=== PATIENT | female | born 1955 | race African-American/Black ===

== ENCOUNTER 2016-07-12 12:02 | Emergency (ER) | payer MEDICARE, MEDICAID ==
[~2016-07-12] VITALS: Ht 162.6 cm; Wt 95.0 kg
[~2016-07-12 12:02] MED LIST: ALBUTERO1 IN; ALBUTEROL90 MCG IN; ALLOPURINOL300 MG PO; ALPHAGAN P0.1 % OP; ALPHAGAN P0.15 % OP; ALPRAZOLAM0.25 MG OR; ALPRAZOLAM0.5 MG PO; AMANTADINE100 MG OR; AMLODIPINE10 MG PO; ANTACID PO; ASPIR-LOW81 MG OR; ASPIRIN325 MG OR; ASPIRIN325 MG PO; AUGMENTIN500TAB PO; AVANDIA4 MG OR; BACLOFEN10 MG PO; BACTRIM DS1 TAB PO; BAYER ASPIRIN E81 MG PO; BL ASPIRIN325 MG PO; CALCIUM + D600 MG PO; CALCIUM 600/VI600 MG PO; CAPOTEN12.5 MG OR; CAPTOPRIL12.5 MG OR; CAPTOPRIL25 MG OR; CAPZASIN TOP; CARISOPRODOL350 MG OR; CARISOPRODOL350 MG PO; CIPRO500 MG OR; CIPROFLOXACN500 MG PO; COLCHICINE0.6 M2 PO; COLPROBENEMID500 MG PO; COMBIVENT IN; CVS OMEPRAZOLE20 MG PO; DILANTIN100 MG PO; ELAVIL25 MG PO; ERYTHROMYCIN BAS1 GM OD; FLUARIX QUADRIV1 IN1 IM; FLUARIX QUADRIV1 IN2 IM; FLUARIX QUADRIV1 INJ IM; FLULAVAL IM; FUROSEMIDE40 MG OR; FUROSEMIDE40 MG PO; GABAPENTIN100 MG PO; GABAPENTIN300 M2 PO; GABAPENTIN300 MG PO; GLIPIZIDE10 M1 PO; GLUCOS1 PO; GLUCOTROL10 MG PO; GLYBURID MCR6 M1 PO; GLYNASE6 MG OR; GLYNASE6 MG PO; HUMULIN 70/30 SC; HYDROCO/AP10 MG/660 OR; HYDROCO/APAP; HYDROCO/APAP1 T10 OR; HYDROCO/APAP1 T10 PO; IBUPROFEN600 MG PO; IBUPROFEN800 MG PO; KEFLEX250 MG OR; KEFLEX500 MG OR; KLOR-CON M2020 MEQ OR; LASIX40 MG OR; LASIX40 MG PO; LEVAQUIN500 MG OR; LISINOPRIL20 MG OR; LORCET PLUS1 TAB OR; LORCET PO; LORTAB 10 OR; LORTAB 10-325 M1 TAB PO; LORTAB 5 OR; LORTAB 5/3255 MG PO; LORTAB 7.5 OR; LORTAB 7.57.5 MG PO; LORTAB 7.57.5 MG/TAB OR; LOTENSIN HCT1 TA2 PO; LOTENSIN HCT1 TA3 PO; LYRICA100 MG PO; LYRICA200 MG PO; LYRICA75 MG PO; MAGNESIUM296 ML/BTL PO; MEDDOSEPAK OR; MEDDOSEPAK PO; METFORMIN HCL1000 MG PO; METFORMIN1000 MG PO; METFORMIN500 M1 OR; METFORMIN500 MG PO; MIRAPEX0.5 MG OR; MIRAPEX0.5 MG PO; MIRAPEX0.75 MG PO; MIRAPEX1 MG PO; MITIGARE0.6 MG PO; NAPROSYN500 MG OR; NAPROSYN500 MG PO; NEURONTIN100 MG PO; NEURONTIN300 MG PO; NEURONTIN600 MG PO; NEXIUM40 M1 OR; NORCO1 TA1 PO; NORVASC PO; NORVASC10 M1 PO; NORVASC2.5 MG PO; NOVOLIN 70/30; NOVOLIN 70/30 SC; OMEPRAZOLE20 MG PO; ONGLYZA5 MG PO; PERCOCET 5/321 COMBO PO; PERCOCET 5/325M1 TAB PO; PLAVIX75 MG PO; POLYSPORIN3.5 GM OP; POT CHLORIDE20 ME3 PO; PRAVACHOL40 MG PO; PRAVACHOL80 MG PO; PRAVASTATIN40 MG OR; PRAVASTATIN40 MG PO; PRAVASTATIN80 MG PO; PREVNAR 13 IM; PREVPAC OR; PROAIR HFA IN; PROVENTIL IN; PROVENTIL INH17 GM IN; PROVENTIL0.083 % IN; RESTORIL30 MG OR; RESTORIL30 MG PO; SOMA350 MG OR; SOMA350 MG PO; TAM75CAP PO; TEMAZEPAM30 MG OR; TEMAZEPAM30 MG PO; TERBINAFINE250 M1 PO; TESSALON PERLE100 MG PO; TIZANIDINE4 MG PO; TRAMADOL HCL50 MG PO; TRAVATAN0.004 % OP; TUSSIONEX1 ML OR; TYLENOL # 31 TA1 PO; VENTOLIN HF1 IN; VENTOLIN HFA IN; XANAX0.25 MG OR; XANAX0.5 MG PO; ZANAFLEX4 M2 PO; ZESTRIL10 M1 PO; ZITHROMAX250 MG OR; ZPAK PO; ZYRTEC5 MG OR; [UNRECOGNIZED DRUG - OTHER] OR
[2016-07-12 13:02] LABS: HEMATOCRIT 28.1 % (37.0-47.0); HEMOGLOBIN 9.1 g/dl (12.0-16.0); IMMATURE GRANULOCYTES 0.3 % (0.0-1.0); MEAN CELL VOLUME 82.2 fL CALC (80.0-100.0); MEAN CORPUSCULAR HGB 26.6 pG CALC (26.0-32.0); MEAN CORPUSCULAR HGB CONC 32.4 g/L CALC (32.0-36.0); NEUT# 2.52 thou/uL (2.00-7.15); RED BLOOD COUNT 3.42 mill/uL (4.20-5.60); RED CELL DISTRI WIDTH 15.2 % (11.5-15.5); URINE BILIRUBIN - DIPSTICK NEGATIVE (NEGATIVE); URINE BLOOD DIPSTICK NEGATIVE (NEGATIVE); URINE CLARITY CLEAR; URINE COLOR YELLOW; URINE GLUCOSE - DIPSTICK NEGATIVE (NEGATIVE); URINE KETONE NEGATIVE (NEGATIVE); URINE LEUK ESTERASE NEGATIVE (NEGATIVE); URINE NITRITE - DIPSTICK NEGATIVE (Negative); URINE PH 5.5 (4.5-8.0); URINE PROTEIN - DIPSTICK 30 mg/dL (NEG-TRACE); URINE UROBILINOGEN - DIPSTICK 0.2 E.U./dL (0.2)
[2016-07-12 13:03] LABS: URINE EPITHELIAL CELLS FEW EPI/hpf (0-FEW); URINE MUCUS MODERATE hpf (NONE-FEW)
[2016-07-12] MEDS ORDERED: NOVOLIN 70/30 SC ×2 (13:12)
[2016-07-12 13:15] LABS: ALBUMIN 3.9 g/dL (3.2-5.0); ALKALINE PHOSPHATASE 133 u/l (38-126); AMYLASE 153 u/l (30-110); ANION GAP 14 (6-22 (CALC)); BILIRUBIN, TOTAL 0.3 mg/dL (0.0-1.4); BUN 28 mg/dL (8-23); BUN/CREATININE RATIO 11 (12-20 (CALC)); CALCIUM 10.5 mg/dL (8.4-10.2); CARBON DIOXIDE 26 mmol/l (22-30); CHLORIDE 104 mmol/l (95-108); CREATININE 2.6 mg/dL (0.5-1.0); GFR 19 ML/MIN (>=60 (CALC)); GFR FOR AFR.AMER. 23 ML/MIN (>=60 (CALC)); GLUCOSE 90 mg/dL (82-115); LIPASE 208 u/l (23-300); POTASSIUM 4.9 mmol/l (3.5-5.1); SGOT/AST 18 u/l (9-36); SGPT/ALT 24 u/l (11-66); SODIUM 139 mmol/l (137-146); TOTAL PROTEIN 7.7 g/dL (6.3-8.2)
[2016-07-12 13:26] LABS: MYOGLOBIN 104 ng/mL (0 - 62)
[2016-07-12 16:41] VITALS: BP 189/77
== END 2016-07-12 16:48 | disposition home or self-care (01) ==
LOC: ED 12:02
PROVIDERS: Emergency Medicine
DX: R10.33 Periumbilical pain (principal); E11.22 Type 2 diabetes mellitus with diabetic chronic kidney disease; I12.9 Hypertensive chronic kidney disease with stage 1 through stage 4 chronic kidney disease, or unspecified chronic kidney disease; N18.9 Chronic kidney disease, unspecified; G47.30 Sleep apnea, unspecified; J45.909 Unspecified asthma, uncomplicated; R94.31 Abnormal electrocardiogram [ECG] [EKG]

== ENCOUNTER 2016-12-19 11:58 | Emergency (ER) | payer MEDICARE, MEDICAID ==
[~2016-12-19] VITALS: Ht 162.6 cm; Wt 100.0 kg
[2016-12-19 12:28] LABS: URINE BILIRUBIN - DIPSTICK NEGATIVE (NEGATIVE); URINE BLOOD DIPSTICK MODERATE (NEGATIVE); URINE CLARITY CLEAR; URINE COLOR YELLOW; URINE GLUCOSE - DIPSTICK 500 mg/dL (NEGATIVE); URINE KETONE TRACE mg/dL (NEGATIVE); URINE LEUK ESTERASE NEGATIVE (NEGATIVE); URINE PROTEIN - DIPSTICK >=300 mg/dL (NEG-TRACE); URINE SPECIFIC GRAVITY 1.025; URINE UROBILINOGEN - DIPSTICK 0.2 E.U./dL (0.2)
[2016-12-19 12:37] LABS: URINE BACTERIA RARE hpf; URINE EPITHELIAL CELLS FEW EPI/hpf (0-FEW); URINE NITRITE - DIPSTICK NEGATIVE (Negative); URINE WBC 0-2 WBC/hpf (0-5)
[2016-12-19 12:48] LABS: HEMATOCRIT 29.8 % (37.0-47.0); HEMOGLOBIN 9.9 g/dl (12.0-16.0); IMMATURE GRANULOCYTES 0.3 % (0.0-1.0); MEAN CELL VOLUME 80.1 fL CALC (80.0-100.0); MEAN CORPUSCULAR HGB 26.6 pG CALC (26.0-32.0); MEAN CORPUSCULAR HGB CONC 33.2 g/L CALC (32.0-36.0); NEUT# 4.02 thou/uL (2.00-7.15); RED BLOOD COUNT 3.72 mill/uL (4.20-5.60); RED CELL DISTRI WIDTH 13.2 % (11.5-15.5)
[2016-12-19 13:14] LABS: ALBUMIN 3.2 g/dL (3.2-5.0); BILIRUBIN, TOTAL 0.7 mg/dL (0.0-1.4); CALCIUM 9.1 mg/dL (8.4-10.2); CREATININE 2.3 mg/dL (0.5-1.0); POTASSIUM 3.2 mmol/l (3.5-5.1)
[2016-12-19] MEDS ORDERED: LORTAB 5-325 MG1 TAB PO (13:48)
[2016-12-19 14:26] VITALS: BP 221/95
== END 2016-12-19 14:26 | disposition home or self-care (01) ==
LOC: ED 11:58
PROVIDERS: Emergency Medicine
DX: R07.89 Other chest pain (principal); J45.909 Unspecified asthma, uncomplicated; G47.30 Sleep apnea, unspecified; E11.22 Type 2 diabetes mellitus with diabetic chronic kidney disease; I12.9 Hypertensive chronic kidney disease with stage 1 through stage 4 chronic kidney disease, or unspecified chronic kidney disease; N18.9 Chronic kidney disease, unspecified

== ENCOUNTER 2017-01-23 10:30 | Emergency (ER) | payer MEDICARE, MEDICAID ==
[~2017-01-23] VITALS: Ht 162.6 cm; Wt 90.0 kg
[~2017-01-23 10:30] MED LIST changes: +GLIPIZIDE ER5 MG PO; +LASIX 40 MG40 MG/TAB PO; +LISINOPRIL10 MG PO; +LORTAB 5-325 MG1 TAB PO; +LYRICA50 MG PO; +PRAMIPEXOLE1 MG PO; +PRAVASTATIN20 MG PO; +VALPROIC ACD250 M1 PO; +VITAMIN D50000 UNIT PO
[2017-01-23 11:07] LABS: HEMATOCRIT 32.5 % (37.0-47.0); HEMOGLOBIN 10.9 g/dl (12.0-16.0); IMMATURE GRANULOCYTES 0.4 % (0.0-1.0); MEAN CELL VOLUME 79.5 fL CALC (80.0-100.0); MEAN CORPUSCULAR HGB 26.7 pG CALC (26.0-32.0); MEAN CORPUSCULAR HGB CONC 33.5 g/L CALC (32.0-36.0); NEUT# 6.96 thou/uL (2.00-7.15); RED BLOOD COUNT 4.09 mill/uL (4.20-5.60); RED CELL DISTRI WIDTH 13.2 % (11.5-15.5)
[2017-01-23 11:25] LABS: ALBUMIN 3.5 g/dL (3.2-5.0); BILIRUBIN, TOTAL 0.5 mg/dL (0.0-1.4); CALCIUM 10.4 mg/dL (8.4-10.2); CREATININE 2.2 mg/dL (0.5-1.0); POTASSIUM 4.2 mmol/l (3.5-5.1); TOTAL PROTEIN 7.3 g/dL (6.3-8.2)
[2017-01-23 14:03] LABS: URINE BILIRUBIN - DIPSTICK NEGATIVE (NEGATIVE); URINE BLOOD DIPSTICK TRACE-INTACT (NEGATIVE); URINE CLARITY CLEAR; URINE COLOR YELLOW; URINE GLUCOSE - DIPSTICK 250 mg/dL (NEGATIVE); URINE KETONE TRACE mg/dL (NEGATIVE); URINE LEUK ESTERASE NEGATIVE (NEGATIVE); URINE NITRITE - DIPSTICK NEGATIVE (Negative); URINE PH 6.5 (4.5-8.0); URINE PROTEIN - DIPSTICK 100 mg/dL (NEG-TRACE); URINE UROBILINOGEN - DIPSTICK 0.2 E.U./dL (0.2)
[2017-01-23 14:17] LABS: URINE SQUAMOUS EPITHELIAL CELL FEW EPI/hpf (0-FEW)
[2017-01-23 19:54] VITALS: BP 133/72
== END 2017-01-23 19:56 | disposition home or self-care (01) ==
LOC: ED 10:30
PROVIDERS: Emergency Medicine
DX: R10.13 Epigastric pain (principal); E11.22 Type 2 diabetes mellitus with diabetic chronic kidney disease; I12.9 Hypertensive chronic kidney disease with stage 1 through stage 4 chronic kidney disease, or unspecified chronic kidney disease; N18.9 Chronic kidney disease, unspecified; J45.909 Unspecified asthma, uncomplicated; G47.30 Sleep apnea, unspecified; I25.10 Atherosclerotic heart disease of native coronary artery without angina pectoris; I25.2 Old myocardial infarction
CPT/HCPCS: S0164

== ENCOUNTER 2017-02-14 08:54 | Emergency (ER) | payer MEDICARE, MEDICAID ==
[~2017-02-14] VITALS: Ht 162.6 cm; Wt 90.0 kg
[2017-02-14] MEDS ORDERED: ULTRAM50 M1 PO (09:31)
[2017-02-14 09:47] VITALS: BP 185/65
== END 2017-02-14 09:55 | disposition home or self-care (01) ==
LOC: ED 08:54
DX: S80.01XA Contusion of right knee, initial encounter (principal); W18.39XA Other fall on same level, initial encounter; Y92.232 Corridor of hospital as the place of occurrence of the external cause

== ENCOUNTER 2017-05-08 09:50 | Inpatient (IN) | payer MEDICARE, MEDICAID ==
[~2017-05-08] VITALS: Ht 162.6 cm; Wt 89.5 kg
[2017-05-08] VITALS (20 sets, daily range): BP systolic 128–208; BP diastolic 81–110
[~2017-05-08 09:50] MED LIST changes: +ULTRAM50 M1 PO
--- NOTE | 2017-05-08 09:50 | NUR ---
TO ROOM 12 VIA EMS. ALERT. COOPERATIVE. ACCUCHECK 38 AT HOME. EMS GAVE D50 PRIOR TO ARRIVA. S/S HAVE GONE
[2017-05-08] MEDS ORDERED: HYDROCO/APAP1 T10 PO (10:26)
[2017-05-08] MEDS ORDERED: AMLODIPINE5 MG PO (10:28)
[2017-05-08] MEDS ORDERED: AURYXIA210 MG PO (10:30)
[2017-05-08] MEDS ORDERED: ONGLYZA5 MG PO (10:31)
[2017-05-08] MEDS ORDERED: ASPIRIN325 MG PO (10:32)
[2017-05-08] MEDS ORDERED: FOLIC ACID1 MG PO (10:33)
[2017-05-08 10:47] LABS: HEMATOCRIT 31.4 % (37.0-47.0); HEMOGLOBIN 10.2 g/dl (12.0-16.0); IMMATURE GRANULOCYTES 0.5 % (0.0-1.0); MEAN CELL VOLUME 80.5 fL CALC (80.0-100.0); MEAN CORPUSCULAR HGB 26.2 pG CALC (26.0-32.0); MEAN CORPUSCULAR HGB CONC 32.5 g/L CALC (32.0-36.0); NEUT# 5.29 thou/uL (2.00-7.15); RED BLOOD COUNT 3.9 mill/uL (4.20-5.60)
[2017-05-08 10:59] LABS: ANION GAP 16 (6-22 (CALC)); BUN 38 mg/dL (8-23); BUN/CREATININE RATIO 13 (12-20 (CALC)); CARBON DIOXIDE 21 mmol/l (22-30); CHLORIDE 108 mmol/l (95-108); CREATININE 2.9 mg/dL (0.5-1.0); GFR 16 ML/MIN (>=60 (CALC)); GFR FOR AFR.AMER. 20 ML/MIN (>=60 (CALC)); POTASSIUM 4.6 mmol/l (3.5-5.1); SODIUM 141 mmol/l (137-146)
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
--- NOTE | 2017-05-08 12:45 | NUR ---
LABETOLOL HELD BP 154/74, HR 75. AWARE
--- NOTE | 2017-05-08 13:10 | NUR ---
PT ACCUCHECK WAS 53. GIVEN A LUNCH TRAY FROM CAFETERIA. ACCU RECHECK 51. MD NOTIFIED. D50 OVERRODE FROM [facility] BC MD STATED PHARM WAS ALREADY IN HER CHART. BP UP TO 235/102. PT A&Ox4, TALKING WITH STAFF. DENIES BEING DIZZY OR LIGHTHEADED. MD AWARE OF BP & BLOOD SUGAR BOUNCING UP & DOWN. CALLING ADMITTING MD FOR CHANGE IN UNIT.
--- NOTE | 2017-05-08 13:22 | NUR ---
Admission Note Report Given to: DAVION Transported by: Wheelchair X Stretcher Transported with: X Nurse Transporter X Patent IV O2 X Client Server Programmer
--- NOTE | 2017-05-08 13:48 | NUR ---
D5 DISCONTINUED- 105ML GIVEN. VERBAL ORDER FOR D10 STARTED AT 1344 @ 100ML/HR. PER MD JOY.
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
--- NOTE | 2017-05-08 14:25 | NUR ---
accucheck of 127; will continue to monitor
--- NOTE | 2017-05-08 14:25 | NUR ---
PT TAKEN TO ICU ROOM 5 IN STABLE CONDITION WITH MONITOR ON STRETCHER. RN @ BEDSIDE.
--- NOTE | 2017-05-08 14:33 | NUR ---
pt noted calling for nurse approx 2-3 min after medications given; in to assess pt; pt noted with projectile vomiting; medications visually observed in emesis; pt vomited approx 1-1.5 liters; unprocessed food noted; pt admits to eating 2 lunch trays wheile in ER; pt denies nausea; will continue to monitor
--- NOTE | 2017-05-08 15:00 | NUR ---
Cielo AMOR on unit; APPEALS REVIEWER VETERAN informed of vomiting; APPEALS REVIEWER VETERAN informed medications administered at 1430 were noted in emesis; will continue to mointor
--- NOTE | 2017-05-08 15:45 | NUR ---
manual bp 198/98;
--- NOTE | 2017-05-08 15:59 | NUR ---
awake; offers no complaints; denies pain; no nausea noted; iv patent; no redness or edema noted at site; sr on monitor; po fluids provided; call light within reach; will continue to monitor
--- NOTE | 2017-05-08 16:25 | NUR ---
Cielo Valles NP notified of sustained hypertension; orders to be placed
--- NOTE | 2017-05-08 17:27 | NUR ---
Dr Mckeon at bedside
--- NOTE | 2017-05-08 18:03 | NUR ---
awake in bed eating dinner; no distress noted; pt offers no complaints; iv patent; no redness or edema noted at site; st on monitor; deny needs; bed in lowest position; call light within reach
--- NOTE | 2017-05-08 18:32 | NUR ---
side rails padded for seizure precautions; bilat knee high leidy hose placed
--- NOTE | 2017-05-08 19:34 | NUR ---
PT IN SEMIFOWLERS A/O X3, RESPIRATIONS EVEN AND UNLABORED ON RA, O2 SAT 100%. ACCUCHECK 142 AT THIS TIME. DENIES PAIN OR DISCOMFORT. D10 INFUSING TO LAC AT 50CC/HR REDUCED DOWN TO 20ML/HR, WILL DO ACCUCHECK AT 2100. B/P 175/83, HR 108, WILL ADMINISTER HYDRALAZINE PER MAR ORDERED. ORIENTED TO USE CALL LIGHT FOR ASSISTANCE, WILL CONTINUE TO MONITOR.
--- NOTE | 2017-05-08 20:50 | NUR ---
TAKING PO PM MEDS WITH SIP OF WATER, VOICES NO CONCERNS.
--- NOTE | 2017-05-08 21:37 | NUR ---
C/O ABDOMINAL PAIN 10/14, MEDICATED WTIH LORTAB. ACCUCHECK 156. CALL LIGHT IN REACH.
[2017-05-08 22:05] LABS: CALCULATED LDLCHOLESTEROL 133 mg/dL (62-129 (CALC)); CHOLESTEROL HDL RATIO 4.5 (<4.4 (CALC)); HDL CHOLESTEROL 41 mg/dL (>=40); TOTAL CHOLESTEROL 184 mg/dl (0-199); TOTAL TRIGLYCERIDES 51 mg/dl (30-149); VLDL CHOLESTROL 10 mg/dl (1-41 (CALC))
--- NOTE | 2017-05-08 23:25 | NUR ---
PT CALLING OUT FOR NURSE, IN TO ROOM TO ASSIST, PT ASKING FOR EMESIS BASIN, PROJECTILE VOMITING ON TO BED AND SHEETS, PRIOR TO RECEIVING BASIN. TUCKER RN MEDICATING PT WITH PHENERGAN PER MAR AT THIS TIME. PARTIAL BATH AND CLEAN LINENS APPLIED, USING BSC PRIOR TO GOING BACK TO BED, VOIDING 25ML CLEAR YELLOW URINE, BACK TO BED CALL LIGHT IN REACH. PT ADMITS TO VOMITING AT HOME ALMOST TWICE PER NIGHT. BS HYPOACTIVE.
[2017-05-09] VITALS (13 sets, daily range): BP systolic 107–167; BP diastolic 69–86
[2017-05-09 00:51] LABS: URINE BILIRUBIN - DIPSTICK NEGATIVE (NEGATIVE); URINE BLOOD DIPSTICK NEGATIVE (NEGATIVE); URINE COLOR YELLOW; URINE GLUCOSE - DIPSTICK NEGATIVE (NEGATIVE); URINE KETONE NEGATIVE (NEGATIVE); URINE NITRITE - DIPSTICK NEGATIVE (Negative); URINE PH 5.5 (4.5-8.0); URINE PROTEIN - DIPSTICK 100 mg/dL (NEG-TRACE); URINE SPECIFIC GRAVITY 1.015; URINE UROBILINOGEN - DIPSTICK 0.2 E.U./dL (0.2)
[2017-05-09 00:52] LABS: URINE BACTERIA MODERATE hpf; URINE CLARITY TURBID; URINE LEUK ESTERASE SMALL (NEGATIVE); URINE RBC 0-2 RBC/hpf (0-5); URINE SQUAMOUS EPITHELIAL CELL MODERATE EPI/hpf (0-FEW)
[2017-05-09 00:53] LABS: URINE YEAST MODERATE hpf
--- NOTE | 2017-05-09 01:00 | NUR ---
PT IN SEMIFOWLERS WATCHING TV, RESPIRATIONS EVEN AND UNLABORED, B/P 165/77, HR 110. DENIES NAUSEA AT THIS TIME. CALL LIGHT IN REACH.
--- NOTE | 2017-05-09 03:58 | NUR ---
PT VOMITING 900ML EMESIS INTO BASIN, CLEAR WITH PINK TINGE AND SCANT AMOUNT FOOD PARTICLES. ZOFRAN 4MG IV GIVEN AT THIS TIME, DENIES ABDOMINAL PAIN, BS HYPOACTIVE.
--- NOTE | 2017-05-09 04:40 | NUR ---
EMS SITE DC'D FROM LAC WITH CATH TIP INTACT, NEW IV STARTED TO LAC #22 ON 3RD ATTEMPT, TOLERATED WELL, MORNING BLOOD WORK ALSO DRAWN AT THIS TIME. ENCOURAGED PT TO KEEP NPO DUE TO THE VOMITING DURING THE NIGHT. CALL LIGHT IN REACH, BASIN AT BED SIDE.
[2017-05-09 04:55] LABS: IMMATURE GRANULOCYTES 0.3 % (0.0-1.0); MEAN CELL VOLUME 78.3 fL CALC (80.0-100.0); MEAN CORPUSCULAR HGB 26.1 pG CALC (26.0-32.0); MEAN CORPUSCULAR HGB CONC 33.3 g/L CALC (32.0-36.0); NEUT# 3.95 thou/uL (2.00-7.15); RED BLOOD COUNT 3.83 mill/uL (4.20-5.60)
[2017-05-09 05:07] LABS: CREATININE 2.6 mg/dL (0.5-1.0); POTASSIUM 4.2 mmol/l (3.5-5.1)
--- NOTE | 2017-05-09 07:10 | NUR ---
pt awake in bed; no distress noted; offers no complaints; assessment completed at this time; pt alert and oriented; denies pain; denies nausea; vomiting reported during the night; pt made npo until assess by MD; resp even and unlabored; lungs clear; skin color wnl; ra; hr reg; strong pulses; no edema noted; sr 90s on monitor; bilat knee high leidy hose intact; abd soft with bs present/hypoactive; no bm noted per copy writer; pt admits to voiding without pain or burning; no urine to inspect at this time; bsc; #22 in lac saline locked; no redness or edema noted at site; plan of care/ am meds explained; side rails padded for seizure precautions; call light within reach; will continue to monitor
--- NOTE | 2017-05-09 08:06 | NUR ---
awake; conversing on portable phone with daughter; no distress noted; pt offers no complaints; iv intact; sr on monitor; call light within reach; will continue to monitor
--- NOTE | 2017-05-09 08:12 | NUR ---
Cielo Valles NP notified of projectile vomiting during the night; AERIAL ADVERTISER informed of hypoactive bs; orders to be placed
--- NOTE | 2017-05-09 08:24 | NUR ---
ZULEYMA Esteban at bedside
--- NOTE | 2017-05-09 08:25 | NUR ---
0825- pt transferred to CT via wc with nursing staff in stable condition 0845- pt returned to unit via wc in stable condition; monitoring attachments explained and connected; daughter at bedside; home meds to be sent home with daughter
--- NOTE | 2017-05-09 10:08 | NUR ---
awake in bed; no distress noted; pt offers no complaints; iv intact; daughter at bedside; sr on monitor; call light within reach; will continue to monitor
--- NOTE | 2017-05-09 11:00 | NUR ---
assist to bsc; large hard/formed brown bm noted; will continue to monitor
--- NOTE | 2017-05-09 11:35 | NUR ---
assist to chair; complete bath per self; oral care per self; complete linen change; pt remains in recliner for lunch; will continue to monitor
--- NOTE | 2017-05-09 12:12 | NUR ---
awake in recliner; no distress noted; resp even and unlabored; iv intact; vss; st on monitor; pt offers no complaints; call light within reach; will continue to monitor
[2017-05-09 13:04] LABS: ALBUMIN 3.5 g/dL (3.2-5.0); BILIRUBIN, TOTAL 0.4 mg/dL (0.0-1.4); TOTAL PROTEIN 6.6 g/dL (6.3-8.2)
--- NOTE | 2017-05-09 13:05 | NUR ---
transported to [place] via accompanied by this journalists and other writers; 1320- returned to unit in stable condition accompanied by this time; will continue to monitor
--- NOTE | 2017-05-09 14:08 | NUR ---
resting in bed with eyes closed; no distress noted; resp even and unlabored; sr on monitor; iv intact; call light within reach; will continue to monitor
--- NOTE | 2017-05-09 16:07 | NUR ---
pt resting in bed with eyes closed; no distress noted; resp even and unlabored; sr on monitor; iv intact; call light within reach; will continue to monitor
--- NOTE | 2017-05-09 16:40 | NUR ---
Dr Mckeon at bedside
--- NOTE | 2017-05-09 18:23 | NUR ---
awake watching tv; no distress noted; resp even and unlabored; iv intact; sr on monitor; pt offers no complaints/needs; bed in lowest position; call light within reach
--- NOTE | 2017-05-09 19:40 | NUR ---
PT IN BED A/O X3, RESPIRATIONS EVEN AND UNLABORED ON RA. DENIES ABDOMINAL PAIN OR NAUSEA. HR 96, B/P 141/72, 02 SAT 100%. PO FLUIDS IN REACH, ENCOURAGED TO USE CALL LIGHT FOR ASSISTANCE, WILL CONTINUE TO MONITOR.
--- NOTE | 2017-05-09 21:37 | NUR ---
C/O ABDOMINAL PAIN 10/14, MEDICATED WTIH LORTAB. ACCUCHECK 156. CALL LIGHT IN REACH.
[2017-05-10 00:42] VITALS: BP 117/76
--- NOTE | 2017-05-10 00:46 | NUR ---
RESTING ON RIGHT SIDE WITH EYES CLOSED, RESPIRATIONS EVEN AND UNLABORED. CALL LIGHT IN REACH.
[2017-05-10 02:47] VITALS: BP 102/75
--- NOTE | 2017-05-10 02:50 | NUR ---
RESTING WITH EYES CLOSED, REPSIRATINS EVEN AND UNALBORED. B/P 102/75, HR 81. CALL LIGHT IN REACH.
[2017-05-10 04:12] VITALS: BP 145/86
--- NOTE | 2017-05-10 04:30 | NUR ---
OOB TO BSC WITH STANDBY ASSISTANCE, UNSTEADY GAIT, VOIDING CLEAR YELLOW URINE, ASSISTED WITH GUSTAVO CARE AND PARTIAL BATH AT THIS TIME. BACK TO BED, VOICES NO CONCERNS. A/O X3. CALL LIGHT IN REACH.
[2017-05-10 06:08] VITALS: BP 165/90
--- NOTE | 2017-05-10 06:31 | NUR ---
RESTING ON RIGHT SIDE WITH EYES CLOSED, RESPIRATIONS EVEN AND UNLABORED. CALL LIGHT IN REACH.
--- NOTE | 2017-05-10 07:15 | NUR ---
PT DOZING BUT AROUSES TO VERBAL STIMULI, ALERT AND ORIENTED BUT DROWSY, AM ASSESSMENT COMPLETED SEE INTERVENTIONS FOR DETAIL, AM ACCU CHECK 138 NO COVERAGE REQUIRED, LUNGS CLEAR, NO SHORTNESS OF BREATH OR DISTRESS NOTED, ABD SOFT AND BS ACTIVE, PT ADMITS TO BM'S YESTERDAY, DENIES N/V, SKIN INTACT, TRACE EDEMA NOTED TO BILATERAL LE, CALL QUINTERO WITHIN REACH, SAFETY MEASURES REINFORCED, ENCOURAGED TO CALL FOR ANY NEEDED ASSISTANCE.
--- NOTE | 2017-05-10 08:15 | NUR ---
AM MEAL AT BEDSIDE, PT VERBALIZES DESIRE TO SLEEP, ENCOURAGED TO CALL FOR ANY NEEDED ASSISTANCE WITH SET UP WHEN READY.
--- NOTE | 2017-05-10 08:53 | NUR ---
PT DOZING, VS STABLE NO S/S OF DISTRESS, CALL QUINTERO WITHIN REACH.
[2017-05-10 09:00] VITALS: BP 137/79
[2017-05-10 09:13] VITALS: BP 165/90
--- NOTE | 2017-05-10 10:15 | NUR ---
PT ATE MOST OF AM MEAL, INTO SEE PATIENT AND PLAN OF CARE DISCUSSED, SPOKE WITH DAUGHTER VIA TELEPHONE REGARDING, PLANNED D/C TODAY, ALL QUESTIONS ANSWERED.
[2017-05-10 10:47] LABS: CREATININE 3.2 mg/dL (0.5-1.0); POTASSIUM 4.4 mmol/l (3.5-5.1)
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
--- NOTE | 2017-05-10 11:57 | NUR ---
SET UP ASSIST PROVIDED FOR AFTERNOON MEAL, CALL QUINTERO WITHIN REACH AND COVERAGE PROVIDED FOR ACCU CHECK ORDERED
--- NOTE | 2017-05-10 13:15 | NUR ---
CALL INTO PATIENTS BROTHER INSTRUCTED, NO ANSWER LEFT MESSAGE, WILL AWAIT RETURN CALL
--- NOTE | 2017-05-10 14:30 | NUR ---
PT OOB GETTING DRESSED WIOTH MIN ASSIST, TOLERATES ACTIVITY WELL, BROTHER AT BEDSIDE, D/C INSTRUCTIONS DISCUSSED WITH PATIENT AND BROTHER, BOTH VERBALIZE UNDERSTANDING, MEDICATION CHANGES DISCUSSED IN DETAIL, ALL HOME MEDICATIONS RETURNED TO PATIENT
--- NOTE | 2017-05-10 14:35 | NUR ---
Discharge instructions given. Patient verbalizes understanding of same. Discharged in stable condition via Wheelchair to Home with family. All belongings sent with pt.
== END 2017-05-10 14:35 | DRG 638 ==
LOC: ED 09:50 → ED-I 12:29 → ED 12:40 → ICU 12:41 → MS2 12:41 → ICU 12:41 → MS2 12:41 → ICU 13:24
PROVIDERS: Family Medicine; Nurse Practitioner Family; ADMIT Internal Medicine; ATTEND Internal Medicine
DX: E11.649 Type 2 diabetes mellitus with hypoglycemia without coma (principal); I12.0 Hypertensive chronic kidney disease with stage 5 chronic kidney disease or end stage renal disease; N17.9 Acute kidney failure, unspecified; E11.22 Type 2 diabetes mellitus with diabetic chronic kidney disease; I16.0 Hypertensive urgency; E11.42 Type 2 diabetes mellitus with diabetic polyneuropathy; N18.5 Chronic kidney disease, stage 5; D63.1 Anemia in chronic kidney disease; F99 Mental disorder, not otherwise specified; G25.81 Restless legs syndrome; E86.0 Dehydration; G40.909 Epilepsy, unspecified, not intractable, without status epilepticus; Z79.4 Long term (current) use of insulin; Z86.73 Personal history of transient ischemic attack (TIA), and cerebral infarction without residual deficits; Z91.14 Patient's other noncompliance with medication regimen

== ENCOUNTER 2017-12-29 16:29 | Inpatient (IN) | payer MEDICARE, MEDICAID ==
[~2017-12-29] VITALS: Ht 162.6 cm; Wt 62.3 kg
[~2017-12-29 16:29] MED LIST changes: +AMLODIPINE5 MG PO; +AURYXIA210 MG PO; +FOLIC ACID1 MG PO
--- NOTE | 2017-12-29 16:37 | NUR ---
PT TO ROOM VIA WHEELCHAIR.
[2017-12-29 17:19] LABS: HEMOGLOBIN 9.5 g/dl (12.0-16.0); IMMATURE GRANULOCYTES 0.2 % (0.0-5.0); MEAN CELL VOLUME 83.6 fL CALC (80.0-100.0); MEAN CORPUSCULAR HGB 27.4 pG CALC (26.0-32.0); MEAN CORPUSCULAR HGB CONC 32.8 g/L CALC (32.0-36.0); NEUT# 2.62 thou/uL (2.00-7.15); RED BLOOD COUNT 3.47 mill/uL (4.20-5.60); RED CELL DISTRI WIDTH 13.3 % (11.5-15.5)
[2017-12-29 17:26] LABS: ALBUMIN 3.7 g/dL (3.2-5.0); BILIRUBIN, TOTAL 0.4 mg/dL (0.0-1.4); CREATININE 2.6 mg/dL (0.5-1.0); TOTAL PROTEIN 7.1 g/dL (6.3-8.2)
--- NOTE | 2017-12-29 17:38 | NUR ---
PT MEDICATED FOR ELEVATED BP UPON ARRIVAL TO ER. BP TRENDING DOWN CURRENTLY 189/96. BLE ELEVATED EDEMA BILAT +3 PITTING.
[2017-12-29] MEDS ORDERED: NOVOLOG MIX SC (18:15)
--- NOTE | 2017-12-29 18:42 | NUR ---
IV LASIX GIVEN ORDERED. BSC PROVIDED CALL LIGHT WITHIN REACH. FAMILY AT BEDSIDE.
--- NOTE | 2017-12-29 18:58 | NUR ---
PT VOIDED APPROX 600ML CLEAR YELLOW URINE IN BSC. TRANSFERS SELF.
--- NOTE | 2017-12-29 18:59 | NUR ---
REPORT PROVIDED TO DESIRAE ESQUIVEL.
--- NOTE | 2017-12-29 19:00 | NUR ---
REPORT RECEIVED FROM LAURIE. PATIENT IS ADMITTED WITH ROOM ASSIGNMENT. AWAITING BP TO IMPROVE MORE AFTER CLONIDINE. PATIENT REQUESTING FOOD.
[2017-12-29 19:14] LABS: URINE BILIRUBIN - DIPSTICK NEGATIVE (NEGATIVE); URINE BLOOD DIPSTICK SMALL (NEGATIVE); URINE COLOR YELLOW; URINE GLUCOSE - DIPSTICK NEGATIVE (NEGATIVE); URINE KETONE NEGATIVE (NEGATIVE); URINE LEUK ESTERASE NEGATIVE (NEGATIVE); URINE NITRITE - DIPSTICK NEGATIVE (Negative); URINE PH 6.5 (4.5-8.0); URINE PROTEIN - DIPSTICK 100 mg/dL (NEG-TRACE); URINE UROBILINOGEN - DIPSTICK 0.2 E.U./dL (0.2)
--- NOTE | 2017-12-29 19:20 | NUR ---
PATIENT GIVEN SUGAR FREE PUDDING AND A DIET SODA
[2017-12-29 19:24] LABS: URINE CLARITY CLEAR
[2017-12-29 19:25] LABS: URINE SQUAMOUS EPITHELIAL CELL RARE EPI/hpf (0-FEW); URINE WBC 0-2 WBC/hpf (0-5)
--- NOTE | 2017-12-29 19:40 | NUR ---
REPORT CALLED TO SUSAN. PATIENT READIED FOR TRANSPORT TO FLOOR VIA WHEELCHAIR.
--- NOTE | 2017-12-29 19:50 | NUR ---
PT ARRIVED TO UNIT VIA WHEELCHAIR WITH ER STAFF. AMBULATED WITH UNSTEADY GAIT TO BATHROOM AND TO BED. ALERT AND ORIENTED; TELE ON. C/O PAIN TO BLE. RESPIRATIONS EVEN AND UNLABORED ON ROOM AIR. ORIENTED TO ROOM AND CALL LIGHT SYSTEM. PLAN OF CARE DISCUSSSED. PT ENCOURAGED TO VERBALIZE CONCERNS. STATES UNDERSTANDING. SHE REQUESTS A SNACK, FINGER STICK BG 98. SAFETY MEASURES IN PLACE. CALL LIGHT WITHIN REACH.
[2017-12-29 20:30] VITALS: BP 130/57
--- NOTE | 2017-12-29 20:30 | NUR ---
HS SNACK GIVEN AND ASSESSMENT COMLETED. PLACED ON SEIZURE PRECAUTIONS. 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 FISTULA TO LUE WITH NO THRILL OR BRUIT; PT STATES THAT IT HAS TO BE REPAIRED AND HAS NOT YET BEEN USED FOR DIALYSIS. LIMB ALERT TO LEFT ARM. BLOOD PRESSURE STABLE AT THIS TIME. PT REPORTS 10/10 PAIN TO BLE, THEN FALLS ASLEEP MINUTES AFTER. SAFETY MEAURES IN PLACE. CALL LIGHT WITHIN REACH.
--- NOTE | 2017-12-29 23:59 | NUR ---
PT ASLEEP AT THIS TIME WITH NO SIGNS OF DISTRESS. RESPIRATIONS EVEN AND UNLABORED ON ROOM AIR. IV SITE APPEARS HEALTHY AND FLUSHES. STANY BY ASSIST TO BATHROOM. SAFETY MEASURES IN PLACE. CALL LIGHT WITHIN REACH.
[2017-12-30] VITALS (12 sets, daily range): BP systolic 136–163; BP diastolic 64–88
--- NOTE | 2017-12-30 04:35 | NUR ---
PT ASLEEP AT THIS TIME WITH NO SIGNS OF DISTRESS. RESPIRATIONS EVEN AND UNLABORED ON ROOM AIR. NO ACUTE CHANGES IN CONDITION THROUGHOUT THE NIGHT. SAFETY MEASURES IN PLACE. CALL LIGHT WITHIN REACH.
[2017-12-30 05:14] LABS: HEMATOCRIT 26.7 % (37.0-47.0); HEMOGLOBIN 8.8 g/dl (12.0-16.0); IMMATURE GRANULOCYTES 0.2 % (0.0-5.0); MEAN CELL VOLUME 83.7 fL CALC (80.0-100.0); MEAN CORPUSCULAR HGB 27.6 pG CALC (26.0-32.0); NEUT# 2.64 thou/uL (2.00-7.15); RED BLOOD COUNT 3.19 mill/uL (4.20-5.60); RED CELL DISTRI WIDTH 13.3 % (11.5-15.5)
[2017-12-30 05:19] LABS: CREATININE 2.6 mg/dL (0.5-1.0); POTASSIUM 4.7 mmol/l (3.5-5.1)
--- NOTE | 2017-12-30 07:05 | NUR ---
REPORT RECEIVED BY WARREN. PT IS RESTING IN BED WITH NO S/S OF DISTRESS NOTED. PT DENIES NEEDS AT THIS TIME. CALL LIGHT IN REACH.
--- NOTE | 2017-12-30 08:00 | NUR ---
ASSESSMENT DONE. TELE IN PLACE. LUNG SOUND CLEAR/DIMINISHED. #20 RW THAT APPEARS HEALTHY. PT IS A&O X3. PT DENIES NEEDS AT THIS TIME. SAFETY PRECAUTIONS REINFORCED AND CALL LIGHT IN REACH.
--- NOTE | 2017-12-30 11:19 | NUR ---
FIRST UNIT OF BLOOD BEGIN. EXPLAIN TO PT S/S OF REACTIONS. PT IS NOW RESTING IN BED AND DENIES NEEDS AT THIS TIME. CALL LIGHT IN REACH.
--- NOTE | 2017-12-30 13:36 | NUR ---
SECOND UNIT OF BLOOD STARTED. PT IS RESTING IN BED WITH NO S/S OF DISTRESS NOTED. PT DENIES NEEDS AT THIS TIME. TELE IN PLACE. CALL LIGHT IN REACH.
--- NOTE | 2017-12-30 16:23 | NUR ---
PT IS RESTING IN HER LEFT SIDE WITH NO S/S OF DISTRESS NOTED. PT DENIES NEEDS AT THIS TIME. CALL LIGHT IN REACH.
--- NOTE | 2017-12-30 19:40 | NUR ---
BEDSIDE REPORT RECEIVED FROM DESIRAE SESAY. PT RESTING IN BED WITH EYES CLOSED ON LEFT SIDE WITH NO SIGNS OF DISTRESS. ANSWERS TO VERBAL STIMULI. DENIES PAIN CURRENTLY. RESPIRATIONS EVEN AND UNLABORED ON ROOM AIR. PLAN OF CARE REVIEWED. PT ENCOURAGED TO VERBALIZE CONCERNS. STATES UNDERSTANDING. SAFETY MEASURES IN PLACE. CALL LIGHT WITHIN REACH.
[2017-12-31] VITALS (8 sets, daily range): BP systolic 151–179; BP diastolic 75–83
--- NOTE | 2017-12-31 | NUR ---
PT ASLEEP AT THIS TIME WITH NO SIGNS OF DISTRESS. RESPIRATIONS EVEN AND UNLABORED ON ROOM AIR. IV SITE APPEARS HEALTHY AND FLUSHES. PT STAND BY ASSIST; AMBULATES WITH WALKER. SAFETY MEASURES IN PLACE. CALL LIGHT WITHIN REACH.
--- NOTE | 2017-12-31 04:07 | NUR ---
PT ASLEEP AT THIS TIME WITH NO SIGNS OF DISTRESS. RESPIRATIONS EVEN AND UNLABORED ON ROOM AIR. NO ACUTE CHANGES IN CONDITION THROUGHOUT THE NIGHT. SAFETY MEASURES IN PLACE. CALL LIGHT WITH IN REACH.
[2017-12-31 05:06] LABS: IMMATURE GRANULOCYTES 0.3 % (0.0-5.0); MEAN CELL VOLUME 82.7 fL CALC (80.0-100.0); MEAN CORPUSCULAR HGB 27.7 pG CALC (26.0-32.0); MEAN CORPUSCULAR HGB CONC 33.4 g/L CALC (32.0-36.0); NEUT# 3.82 thou/uL (2.00-7.15); RED BLOOD COUNT 4.05 mill/uL (4.20-5.60); RED CELL DISTRI WIDTH 13.3 % (11.5-15.5)
[2017-12-31 05:08] LABS: HEMATOCRIT 33.5 % (37.0-47.0); HEMOGLOBIN 11.2 g/dl (12.0-16.0)
[2017-12-31 05:21] LABS: ALBUMIN 3.1 g/dL (3.2-5.0); BILIRUBIN, TOTAL 0.5 mg/dL (0.0-1.4); CREATININE 2.8 mg/dL (0.5-1.0); POTASSIUM 5.6 mmol/l (3.5-5.1); TOTAL PROTEIN 6.2 g/dL (6.3-8.2)
--- NOTE | 2017-12-31 07:10 | NUR ---
REPORT RECEIVED FROM DESIRAE RIVAS;PT RESTING IN SEMI FOWLERS POSITION;INTRODUCED SELF TO PT AND POC DISCUSSED;RESPIRATIONS EVEN AND UNLABORED ON RA;PT DENIES ANY CURRENT PAIN OR DISCOMFORTS,PAIN SCALE AND REPORTING RE-EDUCATED;TELE MONITOR IN PLACE;PT ENCOURAGED TO CALL FOR ASSISTANCE IF NEEDED;FALL AND SEIZURE PRECAUTIONS IN PLACE WITH BED IN THE LOWEST POSITION;CALL LIGHT IN REACH;WILL CONTINUE TO MONITOR
--- NOTE | 2017-12-31 08:30 | NUR ---
PT RESTING IN SEMI FOWLERS POSITION;VS OBTAINED AND ASSESSMENT COMPLETED;PT DENIES ANY CURRENT PAIN OR DISCOMFORTS,PAIN SCALE AND REPORTING RE-EDUCATED;RESPIRATIONS EVEN AND UNLABORED ON RA,CLEAR LUNG SOUNDS NOTED;ABDOMEN DISTENDED/SOFT ON PALPATION AND ACTIVE IN ALL 4 QUADRANTS;WEAK PEDAL PULSES WITH TRACE EDEMA NOTED;SKIN INTACT;TELE MONITORING IN PLACE;#20G TO RIGHT WRIST FLUSHED AND PATENT,SITE APPEARS HEALTHY;MILD RT SIDED WEAKNESS NOTED R/T HX OF STROKE,SLIGHT GARBLED SPEECH NOTED AT TIMES;FISTULA NOTED TO LEFT UPPER ARM WITH NO THRILL OR BRUIT PRESENT;PT DENIES ANY CURRENT NEEDS AND IS INSTRUCTED TO CALL FOR ASSISTANCE IF NEEDED;FALL PRECAUTIONS IN PLACE WITH BED IN THE LOWEST POSITION AND CALL LIGHT IN REACH;WILL CONTINUE TO MONITOR
--- NOTE | 2017-12-31 10:01 | NUR ---
PT MEDICATED WITH MOM AND PRUNE JUICE AT THIS TIME.
--- NOTE | 2017-12-31 11:40 | NUR ---
PT OOB RESTING IN RECLINER AFTER TAKING A SHOWER;RESPIRATIONS EVEN AND UNLABORED ON RA;PT DENIES ANY CURRENT PAIN OR DISCOMFORTS;TELE MONITOR IN PLACE;ACCUCHECK 229,PT COVERED WITH 3 UNITS OF NOVOLOG SLIDING SCALE PER ORDER;PT DENIES ANY ADDITIONAL NEEDS AT THIS TIME AND IS INSTRUCTED TO CALL FOR ASSISTANCE IF NEEDED;FALL PRECAUTIONS IN PLACE WITH CALL LIGHT IN REACH;WILL CONTINUE TO MONITOR
--- NOTE | 2017-12-31 17:00 | NUR ---
PT RESTING IN SEMI FOWLERS POSITION;RESPIRATIONS EVEN AND UNLABORED ON RA;PT DENIES ANY CURRENT PAIN OR DISCOMFORTS;TELE MONITOR IN PLACE;IV SITE TO RIGHT WRIST PATENT;ACCUCHECK 102,NO COVERAGE NEEDED AT THIS TIME;ASSESSMENT UNCHANGED;ENCOURAGED PT TO CALL FOR ASSISTANCE IF NEEDED;FALL AND SEIZURE PRECAUTIONS IN PLACE;WILL CONTINUE TO MONITOR
--- NOTE | 2017-12-31 19:15 | NUR ---
BEDSIDE REPORT RECEIVED FROM KUSH GREENFIELD. PT RESTING IN BED WITH EYES CLOSED; AWAKENS TO VERBAL STIMULI. DENIES PAIN CURRENTLY. RESPIRATIONS EVEN AND UNLABORED ON ROOM AIR. PLAN OF CARE REVIEWED. PT ENCOURAGED TO VERBALIZE CONCERNS. STATES UNDERSTANDING. SAFETY MEASURES IN PLACE. CALL LIGHT WITHIN REACH.
--- NOTE | 2018-01-01 | NUR ---
PT ASLEEP AT THIS TIME WITH NO SIGNS OF DISTRESS. RESPIRATIONS EVEN AND UNLABORED ON ROOM AIR. LORTAB GIVEN WITH SCHEDULED CATAPRES FOR PAIN TO BLE. IV SITE APPEARS HEALTHY AND FLUSHES. PT INDEPENDENT IN ROOM. SAFETY MEASURES IN PLACE. CALL LIGHT WITHIN REACH.
--- NOTE | 2018-01-01 03:54 | NUR ---
PT ASLEEP AT THIS TIME WITH NO SIGNS OF DISTRESS. NO ACUTE CHANGES IN CONDITION THROUGHOUT THE NIGHT. CALL LIGHT WITHIN REACH.
[2018-01-01 04:54] VITALS: BP 151/80
[2018-01-01 05:29] LABS: HEMATOCRIT 34.7 % (37.0-47.0); HEMOGLOBIN 11.8 g/dl (12.0-16.0); IMMATURE GRANULOCYTES 0.3 % (0.0-5.0); MEAN CELL VOLUME 82.4 fL CALC (80.0-100.0); NEUT# 3.54 thou/uL (2.00-7.15); RED BLOOD COUNT 4.21 mill/uL (4.20-5.60); RED CELL DISTRI WIDTH 13.2 % (11.5-15.5)
[2018-01-01 05:44] LABS: ALBUMIN 3.1 g/dL (3.2-5.0); BILIRUBIN, TOTAL 0.4 mg/dL (0.0-1.4); CREATININE 2.9 mg/dL (0.5-1.0); TOTAL PROTEIN 6.2 g/dL (6.3-8.2)
[2018-01-01 05:54] LABS: POTASSIUM 5.5 mmol/l (3.5-5.1)
--- NOTE | 2018-01-01 07:15 | NUR ---
REPORT RECEIVED FROM DESIRAE RIVAS;PT APPEARS TO BE SLEEPING IN SEMI FOWLERS POSITION;NO S/S OF DISTRESS NOTED;RESPIRATIONS EVEN AND UNLABORED ON RA;TELE MONITOR IN PLACE;FALL PRECAUTIONS AND SEIZURE PRECAUTIONS NOTED;BED IN THE LOWEST POSITION WITH CALL LIGHT IN REACH;WILL CONTINUE TO MONITOR
--- NOTE | 2018-01-01 08:34 | NUR ---
DR.NATHAN Solange SHEIKH
[2018-01-01 09:05] VITALS: BP 159/68
--- NOTE | 2018-01-01 09:05 | NUR ---
PT RESTING AT BEDSIDE WATCHING TV;VS OBTAINED AND ASSESSMENT COMPLETED;PT DENIES ANY CURRENT PAIN OR DISCOMFORTS,PAIN SCALE AND REPORTING RE-EDUCATED;RESPIRATIONS EVEN AND UNLABORED ON RA,CLEAR LUNG SOUNDS NOTED;ABDOMEN DISTENDED/SOFT ON PALPATION AND ACTIVE IN ALL 4 QUADRANTS;TRACE EDEMA NOTED TO BLE,ENCOURAGED ELEVATION;#20G TO RIGHT WRIST FLUSHED AND PATENT,SITE APPEARS HEALTHY;TELE MONITOR IN PLACE;MAG CITRATE PROVIDED PER ORDER AND PT EDUCATED ON THE NEED TO COLLECT ALL BM;PT DENIES ANY OTHER CURRENT NEEDS;SEIZURE AND FALL PRECAUTIONS NOTED;CALL LIGHT IN REACH;WILL CONTINUE TO MONITOR
[2018-01-01 11:42] VITALS: BP 149/73
--- NOTE | 2018-01-01 12:05 | NUR ---
PT RESTING IN BED EATING LUNCH;RESPIRATIONS EVEN AND UNLABORED ON RA;TELE MONITOR IN PLACE;IV SITE TO RIGHT WRIST PATENT;PT DENIES ANY CURRENT PAIN OR NEEDS;ASSESSMENT REMAINS UNCHANGED AT THIS TIME;FALL PRECAUTIONS IN PLACE;WILL CONTINUE TO MONITOR
--- NOTE | 2018-01-01 15:00 | NUR ---
PT APPEARS TO BE SLEEPING IN SEMI FOWLERS POSITION,WAKES EASILY TO VERBAL STIMULI;RESPIRATIONS EVEN AND UNLABORED ON RA;PT DENIES ANY CURRENT PAIN OR NEEDS;VS OBTAINED AND SCHEDULED MEDICATION ADMINISTERED ORDER;BP 150/63;TELE MONITOR IN PLACE;SEIZURE AND FALL PRECAUTIONS REMAIN IN PLACE;ASSESSMENT REMAINS UNCHANGED;ENCOURAGED TO CALL FOR ASSISTANCE IF NEEDED;CALL LIGHT IN REACH;WILL CONTINUE TO MONITOR
[2018-01-01 16:00] VITALS: BP 162/77
[2018-01-01 19:00] VITALS: BP 160/76
--- NOTE | 2018-01-01 19:30 | NUR ---
BEDSIDE REPORT RECEIVED FROM KUSH GREENFIELD. PT RESTING IN BED ON RIGHT SIDE WITH EYES CLOSES; AWAKENS TO VERBAL STIMULI. C/O OF BEING TIRED. DENIES PAIN CURRENTLY. RESPIRATIONS EVEN AND UNLABORED ON ROOM AIR. PLAN OF CARE REVIEWED. PT ENCOURAGED TO VERBALIZE CONCERNS. STATES UNDERSTANDING. SAFETY MEASURES IN PLACE. CALL LIGHT WITHIN REACH.
--- NOTE | 2018-01-01 23:52 | NUR ---
PT ASLEEP AT THIS TIME WITH NO SIGNS OF DISTRESS. RESPIRATIONS EVEN AND UNLABORED ON ROOM AIR. IV SITE APPEARS HEALTHY AND FLUSHES. PT IS INDEPENDENT IN ROOM. SAFETY MEASURES IN PLACE. CALL LIGHT WITHIN REACH.
[2018-01-02] VITALS (8 sets, daily range): BP systolic 154–187; BP diastolic 71–95
--- NOTE | 2018-01-02 04:10 | NUR ---
PT SITTING UP IN BED WATCHING TV. DENIES PAIN CURRENTLY. RESPIRATIONS EVEN AND UNLABORED ON ROOM AIR. BLOOD PRESSURE ELEVATED; WILL REASSESS. NO REQUESTS OR CONCERNS AT THIS TIME. SAFETY MEASURES IN PLACE. CALL LIGHT WITHIN REACH.
[2018-01-02 05:48] LABS: HEMOGLOBIN 12.1 g/dl (12.0-16.0); IMMATURE GRANULOCYTES 0.3 % (0.0-5.0); MEAN CELL VOLUME 82.8 fL CALC (80.0-100.0); MEAN CORPUSCULAR HGB 27.8 pG CALC (26.0-32.0); MEAN CORPUSCULAR HGB CONC 33.6 g/L CALC (32.0-36.0); NEUT# 4.78 thou/uL (2.00-7.15); RED BLOOD COUNT 4.35 mill/uL (4.20-5.60); RED CELL DISTRI WIDTH 13.2 % (11.5-15.5)
[2018-01-02 06:22] LABS: POTASSIUM 7.3 mmol/l (3.5-5.1)
[2018-01-02 07:00] LABS: CREATININE 2.9 mg/dL (0.5-1.0)
[2018-01-02 07:01] LABS: POTASSIUM 7.6 mmol/l (3.5-5.1)
--- NOTE | 2018-01-02 07:20 | NUR ---
POTASSIUM ELELVATED; DR. CHAIDEZ NOTIFIED AND NEW ORDERS FOR KAYEXALATE.
--- NOTE | 2018-01-02 07:58 | NUR ---
PT SITTING ON SIDE OF BED, NO SIGNS OF DISTRESS NOTED, RESP EVEN AND UNLABORED. INFORMED PT OF KAYEXELATE FOR POTASSIUM LEVEL. PT IN AGREEMENT. ASSESSMENT COMPLETED. PT HAS A FISTULA TO JOSUE, NO BRUIT AND THRILL DUE TO FISTULA NOT FUNCTIONING CORRECTLY PT TO HAVE IT EVALUATED OUTPT. PT STATES SHE HAS NEVER HAD ANY DIALYSIS TREATMENTS BUT HAD FISTULA IN CASE SHE NEEDED IT DUE TO CKD. PT REQUESTS TO SHOWER, WILL CALL WHEN READY. CALL LIGHT IN REACH,CONTINUE TO MONITOR.
--- NOTE | 2018-01-02 08:05 | NUR ---
TO BEDSIDE TO SEE PT, DISCUSSED POC, PT IN AGREEMENT. MD ORDERED EKG AND RE CHECK POTASSIUM AT 1200. CONTINUE TO MONITOR.
--- NOTE | 2018-01-02 11:17 | NUR ---
BP ELEVATED PT MEDICATED WITH CATAPRESS 0.2 SCHEDULED FOR 1400 BUT GIVEN NOW. CALL LIGHT IN REACH,CONTINUE TO MONITOR.
[2018-01-02 12:30] LABS: HEMATOCRIT 35.3 % (37.0-47.0); HEMOGLOBIN 11.7 g/dl (12.0-16.0); IMMATURE GRANULOCYTES 0.3 % (0.0-5.0); MEAN CORPUSCULAR HGB 27.9 pG CALC (26.0-32.0); MEAN CORPUSCULAR HGB CONC 33.1 g/L CALC (32.0-36.0); NEUT# 3.98 thou/uL (2.00-7.15); RED BLOOD COUNT 4.2 mill/uL (4.20-5.60); RED CELL DISTRI WIDTH 13.3 % (11.5-15.5)
[2018-01-02 12:46] LABS: POTASSIUM 5.8 mmol/l (3.5-5.1)
--- NOTE | 2018-01-02 13:55 | NUR ---
MD NOTIFIED OF POTASSIUM, ORDER FOR ANOTHER DOSE OF KAYEXELATE AND REEVALUATE IN AM.
--- NOTE | 2018-01-02 19:33 | NUR ---
REPORT GIVEN BY ALLEN CURRIE. PATIENT RESTING IN BED. RESP EVEN AND UNLABORED. NO S/S OF DISTRESS NOTED. NEW IV SITE DRESSING CHANGE PERFORMED. FALL PRECAUTIONS IN PLACE, PLAN OF CARE DISCUSSED, AND PATIENT INFORMED TO CALL WITH ANY QUESTIONS OR CONCERNS.
--- NOTE | 2018-01-02 19:44 | NUR ---
DIABETIC SNACK GIVEN TO PATIENT.
[2018-01-03] VITALS (9 sets, daily range): BP systolic 135–1844; BP diastolic 64–88
--- NOTE | 2018-01-03 00:20 | NUR ---
PATIENT'S MIDNIGHT BP WAS ELEVATED. SPOKE WITH , NEW ORDERS GIVEN FOR INCREASED BP. PATIENT RESP EVEN AND UNLABORED. NO S/S OF DISTRESS NOTED.
[2018-01-03 05:45] LABS: HEMATOCRIT 35.6 % (37.0-47.0); HEMOGLOBIN 11.8 g/dl (12.0-16.0); IMMATURE GRANULOCYTES 0.7 % (0.0-5.0); MEAN CELL VOLUME 84.2 fL CALC (80.0-100.0); MEAN CORPUSCULAR HGB 27.9 pG CALC (26.0-32.0); MEAN CORPUSCULAR HGB CONC 33.1 g/L CALC (32.0-36.0); NEUT# 4.69 thou/uL (2.00-7.15); RED BLOOD COUNT 4.23 mill/uL (4.20-5.60); RED CELL DISTRI WIDTH 13.4 % (11.5-15.5)
[2018-01-03 05:54] LABS: ALBUMIN 3.2 g/dL (3.2-5.0); BILIRUBIN, TOTAL 0.5 mg/dL (0.0-1.4); CREATININE 2.7 mg/dL (0.5-1.0); POTASSIUM 5.2 mmol/l (3.5-5.1); TOTAL PROTEIN 6.5 g/dL (6.3-8.2)
--- NOTE | 2018-01-03 08:00 | NUR ---
DR CHAIDEZ AT BEDSIDE TO DISCUSS POC WITH PT, REQUESTS BP MEDS TO BE GIVEN STAGGERED. BP ELEVATED 199/85 RN NOTIFIED FOR LABATELOL TO BE GIVEN. PT IN AGREEMENT. ENCOURAGED PT TO AMBULATE TODAY AND NOT STAY IN BED. DC'D IV FLUIDS IV SL AT THIS TIME. ASSESSMENT COMPLETED, CALL LIGHT IN REACH,CONTINUE TO MONITOR.
--- NOTE | 2018-01-03 15:15 | NUR ---
PT AMBULATED TO END OF HALLWAY, SITTING AT CHAIR. NO SIGNS OF DISTRESS NOTED, RESP EVEN AND UNLABORED. PT AMBULATED BACK TO ROOM AND PT STATES SHE STILL HAS NOT HAD A BM. PT MEDICATED WITH MOM. CALL LIGHT IN REACH,CONTINUE TO MONITOR.
--- NOTE | 2018-01-03 16:00 | NUR ---
PT BP ELEVATED AT 188/75 RN NOTIFIED FOR LABATELOL ADMINISTRATION.
--- NOTE | 2018-01-03 19:30 | NUR ---
PATIENT RESTING IN BED APPEARS SLEEPING WITH EYES CLOSED AND HOB SLIGHTLY ELEVATED RESP ARE EVEN AND UNLABORED. TELE MONITOR IN PLACE. CALL LIGHT IN REACH. WILL CONT TO MONITOR.
--- NOTE | 2018-01-03 21:30 | NUR ---
PATIENT RESTING IN BED. BS-158. COVERED WITH NOVALOG 1UNIT SQ PER SLIDING SCALE COVERAGE PROTOCOL. IV SITE TO RIGHT FOREARM INTACT AND FLUSHES FREELY. SITE APPEARS HEALTHY AT THIS TIME. PATIENT VOIDING YELLOW URINE IN BR. STILL NO BM PER PATIENT SINCE RECIEVING MOM ON DAYSHIFT. ABD IS SOFTLY DISTENDED WITH BS PRESENT. TELE MONITOR IN PLACE. AV FISTULA TO LEFT ARM IS NOT WORKING-NO BERUIT OR THRILL. PATIENT STATES THAT SHE NEEDS A NEW ONE FISTULA FOR WHEN OR IF SHE NEEDS DIAYSIS. SAFETY PRECAUTIONS REINFORCED. CALL LIGHT IN REACH.
--- NOTE | 2018-01-03 23:21 | NUR ---
PATIENT APPEARS SLEEPING WITH SHEET OVER HER HEAD AND HOB ELEVATED SLIGHTLY. CALL LIGHT IN REACH. WILL CONT TO MONITOR.
[2018-01-04] VITALS (13 sets, daily range): BP systolic 106–190; BP diastolic 64–90
--- NOTE | 2018-01-04 01:30 | NUR ---
BP 190/90, HR-58. PATIENT MEDICATED WITH LABETOLOL 10MG IVP ORDERED FOR HTN. CALL LIGHT IN REACH. WILL CONT TO MONITOR.
--- NOTE | 2018-01-04 04:49 | NUR ---
BP-186/88, HR-59. PATIENT AWAKE RESTING IN BED. MEDICATED WITH LOPRESSOR 50MG AND CLONODINE 0.2MG PO. EMPTIED URINE-1100CC OF CLEAR YELLOW URINE. STILL NO BM TONIGHT. CALL LIGHT IN REACH. WILL CONT TO MONITOR.
[2018-01-04 05:55] LABS: HEMATOCRIT 34.4 % (37.0-47.0); HEMOGLOBIN 11.3 g/dl (12.0-16.0); IMMATURE GRANULOCYTES 0.3 % (0.0-5.0); MEAN CELL VOLUME 84.7 fL CALC (80.0-100.0); MEAN CORPUSCULAR HGB 27.8 pG CALC (26.0-32.0); MEAN CORPUSCULAR HGB CONC 32.8 g/L CALC (32.0-36.0); NEUT# 4.66 thou/uL (2.00-7.15); RED BLOOD COUNT 4.06 mill/uL (4.20-5.60); RED CELL DISTRI WIDTH 13.2 % (11.5-15.5)
[2018-01-04 06:17] LABS: ALBUMIN 3.3 g/dL (3.2-5.0); BILIRUBIN, TOTAL 0.5 mg/dL (0.0-1.4); CREATININE 2.7 mg/dL (0.5-1.0); TOTAL PROTEIN 6.5 g/dL (6.3-8.2)
[2018-01-04 06:19] LABS: POTASSIUM 5.4 mmol/l (3.5-5.1)
--- NOTE | 2018-01-04 06:32 | NUR ---
PATIENT RESTING IN BED-BP STILL HIGH 188/69, HR-55. PATIENT MEDICATED EARLY WITH MORNING BP MEDS. CALL LIGHT IN REACH. WILL CONT TO MONITOR.
--- NOTE | 2018-01-04 08:00 | NUR ---
ASSESSEMENT COMPLETED; PT SITTING UP IN BED, HOB ELEVATED; NO S/S OF DISTRESS NOTED; #22IV RFA FLUSHED WITHOUT DIFFICULTY, NO REDNESS OR EDEMA NOTED; FISTULA TO JOSUE NOT FUNCTIONING; RESP EVEN AND UNLABORED, TELE IN PLACE, FALL AND SEIZURE PRECATION IN PLACE; ASSISTED PT TO THE RECLINER FOR BREAKFAST. CALL LIGHT IN REACH, WILL CONTINUE TO MONITOR.
--- NOTE | 2018-01-04 10:08 | NUR ---
DR CHAIDEZ IN ROOM TO DISCUSS POC
--- NOTE | 2018-01-04 11:13 | NUR ---
magnessium citrate administered per emar, encouraged po fluids and instructed to call to obtain specimen.
--- NOTE | 2018-01-04 11:45 | NUR ---
PT CONTINUES TO SIT UP IN RECLINER, NOW EATING LUNCH AND TALKING ON THE PHONE. NO S/S OF DISTRESS NOTED.
--- NOTE | 2018-01-04 12:30 | NUR ---
PT HAD AND CONTINUE TO HAVE RESULTS FROM MAGNESIUM CITRATE. WILL CONTINUE TO MONITOR.
--- NOTE | 2018-01-04 16:56 | NUR ---
PT UP TO THE BATHROOM WITH STEADY GAIT, NO S/S OF DISTRESS NOTED; MEDICATED PER EMAR. WILL CONTINUE TO MONITOR.
--- NOTE | 2018-01-04 18:38 | NUR ---
LOPRESSOR ADMINISTERED PER EMAR; PT DENIES ANY PAIN, NO S/S OF DISTRESS. RESP EVEN AND UNLABORED; BED IN LOW, LOCKED POSITION; CALL QUINTERO IN REACH; WILL CONTINUE TO MONITOR.
--- NOTE | 2018-01-04 20:10 | NUR ---
PATIENT RESTING IN BED-POSITIONED ON HER LEFT SIDE WITH EYES CLOSED. RESP ARE EVEN AND UNLABORED. CALL LIGHT IN REACH. WILL CONT TO MONITOR.
--- NOTE | 2018-01-04 21:17 | NUR ---
PATIENT RESTING IN BED. AWAKE ALERT AND ORIENTEDX3. PATIENT WITH IV SITE TO RIGHT FOREARM-APPEARS HEALTHY AT THIS TIME. PATIENT WITH NON-FUNCTIONING A/V FISTULA TO LEFT ARM-NO BRUIT, NO THRILL. LIMB AERT BRACELET IN PLACE. TELE MONITORING DEVICE IN PLACE. PATIENT IS VOIDING QS CLEAR YELLOW URINE IN BR. PATIENT DID HAVE BM TODAY AND ALL STOOL SPEC HAVE BEEN OBTAINED. BP CONT TO BE HIGH AND PATIENT MEDICATED WITH SCHEDULED CLONODINE AND APRESOLINE. SAFETY PRECAUTIONS REINFORCED. CALL LIGHT IN REACH. WILL CONT TO MONITOR.
--- NOTE | 2018-01-05 00:32 | NUR ---
PATIENT APPEARS SLEEPING AT THIS TIME WITH EYES CLOSED. RESP ARE EVEN AND UNLABORED. CALL LIGHT IN REACH. WILL CONT TO MONITOR.
--- NOTE | 2018-01-05 03:03 | NUR ---
APPEARS SLEEPING POSITIONED ON LEFT SIDE WITH EYES CLOSED. RESP ARE EVEN AND UNLABORED. CALL LIGHT IN REACH. WILL CONT TO MONITOR.
[2018-01-05 04:30] VITALS: BP 175/83
--- NOTE | 2018-01-05 05:29 | NUR ---
PATIENT RESTING IN BED-MEDICATED WITH SCHEDULED LOPRESSOR AND CLONODINE. NO COMPLAINTS AT THIS TIME. CALL LIGHT IN REACH. WILL CONT TO MONITOR.
--- NOTE | 2018-01-05 07:00 | NUR ---
REPORT RECEIVED FROM DESIRAE MC, PT SITTING UP IN BED, NO S/S OF DISTRESS NOTED, RESP EVEN AND UNLABORED. WILL CONTINUE TO MONITOR.
[2018-01-05 07:28] VITALS: BP 197/88
--- NOTE | 2018-01-05 07:40 | NUR ---
ASSESSMENT COMPLETED; PT ALERT ORIENTX3; LUNGS CLEAR, ABD SOFT, DISTENDED NON TENDER; #22IV RFA, FLUSHED FREELY, APPEARS HEALTHY; AV FISTULA TO L ARM, NON FUNCTIONING NO BERUIT OR THRILL; BP CONTINUES TO BE HIGH; TELE IN PLACE; BED IN LOW LOCKED POSITION; CALL QUINTERO IN REACH; WILL CONTINUE TO MONITOR.
[2018-01-05 07:55] VITALS: BP 197/88
--- NOTE | 2018-01-05 07:55 | NUR ---
AM MEDS ADMINISTERED PER EMAR.
[2018-01-05] MEDS ORDERED: VALPROIC ACD250 M1 PO (09:19)
--- NOTE | 2018-01-05 09:55 | NUR ---
Discharge instructions given. Patient verbalizes understanding of same. Discharged in stable condition via Wheelchair to Home with family. All belongings sent with pt.
== END 2018-01-05 10:00 | disposition home or self-care (01) | DRG 640 ==
LOC: ED 16:29 → ED-I 18:25 → ED 18:38 → MS2 18:39
PROVIDERS: Emergency Medicine; ADMIT Internal Medicine Geriatric Medicine; ATTEND Internal Medicine Geriatric Medicine
PROC: 30233N1 Transfusion of Nonautologous Red Blood Cells into Peripheral Vein, Percutaneous Approach (ICD-10-PCS; principal; 2017-12-30)
PROC: 30233N1 Transfusion of Nonautologous Red Blood Cells into Peripheral Vein, Percutaneous Approach (ICD-10-PCS; 2017-12-30)
DX: E87.5 Hyperkalemia (principal); I50.33 Acute on chronic diastolic (congestive) heart failure; I13.0 Hypertensive heart and chronic kidney disease with heart failure and stage 1 through stage 4 chronic kidney disease, or unspecified chronic kidney disease; N17.9 Acute kidney failure, unspecified; E11.22 Type 2 diabetes mellitus with diabetic chronic kidney disease; D63.1 Anemia in chronic kidney disease; I25.10 Atherosclerotic heart disease of native coronary artery without angina pectoris; N18.2 Chronic kidney disease, stage 2 (mild); G40.909 Epilepsy, unspecified, not intractable, without status epilepticus; H40.9 Unspecified glaucoma; E11.42 Type 2 diabetes mellitus with diabetic polyneuropathy; E11.51 Type 2 diabetes mellitus with diabetic peripheral angiopathy without gangrene; E11.319 Type 2 diabetes mellitus with unspecified diabetic retinopathy without macular edema; K29.70 Gastritis, unspecified, without bleeding; Z79.4 Long term (current) use of insulin; Z86.73 Personal history of transient ischemic attack (TIA), and cerebral infarction without residual deficits
CPT/HCPCS: G0378; P9016

== ENCOUNTER 2018-03-28 15:08 | Emergency (ER) | payer MEDICARE, MEDICAID ==
[~2018-03-28] VITALS: Ht 162.6 cm; Wt 100.0 kg
[~2018-03-28 15:08] MED LIST changes: +NOVOLOG MIX SC
[2018-03-28] MEDS ORDERED: PRAVASTATIN SOD80 MG PO (15:32)
[2018-03-28] MEDS ORDERED: PRAMIPEXOLE0.125 M1 PO (15:33)
[2018-03-28] MEDS ORDERED: LYRICA150 M1 PO (15:35)
[2018-03-28] MEDS ORDERED: EC ASPIRIN325 MG PO (15:37)
[2018-03-28] MEDS ORDERED: APAP/HYDRO325 MG/10 PO (15:40)
[2018-03-28] MEDS ORDERED: VALPROIC ACD250 M1 PO (15:41)
[2018-03-28] MEDS ORDERED: NOVOLIN 70/30 INNLT SC (15:43)
[2018-03-28] MEDS ORDERED: HUMULIN 70/30 SC (15:43)
[2018-03-28] MEDS ORDERED: ROCALTROL0.5 MC1 PO (15:44)
[2018-03-28] MEDS ORDERED: TORADOL PO (16:23)
[2018-03-28] MEDS ORDERED: MEDDOSEPAK PO (16:23)
[2018-03-28 16:30] VITALS: BP 153/78
== END 2018-03-28 16:30 | disposition home or self-care (01) ==
LOC: ED 15:08
DX: M25.541 Pain in joints of right hand (principal); M25.532 Pain in left wrist

== ENCOUNTER → 2018-06-16 | Outpatient (REF) | payer MEDICARE, MEDICAID ==
[~2018-06-16] MED LIST changes: +APAP/HYDRO325 MG/10 PO; +EC ASPIRIN325 MG PO; +LYRICA150 M1 PO; +NOVOLIN 70/30 INNLT SC; +PRAMIPEXOLE0.125 M1 PO; +PRAVASTATIN SOD80 MG PO; +ROCALTROL0.5 MC1 PO; +TORADOL PO
[2018-06-16 13:34] LABS: ALBUMIN 3.8 g/dL (3.2-5.0); CREATININE 4.1 mg/dL (0.5-1.0)
[2018-06-16 13:36] LABS: POTASSIUM 5.3 mmol/l (3.5-5.1)
[2018-06-16 13:37] LABS: HEMATOCRIT 31.6 % (37.0-47.0); IMMATURE GRANULOCYTES 0.4 % (0.0-5.0); MEAN CORPUSCULAR HGB 28.2 pG CALC (26.0-32.0); MEAN CORPUSCULAR HGB CONC 31.6 g/L CALC (32.0-36.0); NEUT# 4.19 thou/uL (2.00-7.15); RED BLOOD COUNT 3.55 mill/uL (4.20-5.60); RED CELL DISTRI WIDTH 12.1 % (11.5-15.5)
== END | disposition home or self-care (01) ==
LOC: LAB 11:45
PROVIDERS: ATTEND Internal Medicine Nephrology
DX: N18.4 Chronic kidney disease, stage 4 (severe) (principal); I10 Essential (primary) hypertension; D63.8 Anemia in other chronic diseases classified elsewhere

== ENCOUNTER 2018-12-13 20:41 | Observation (INO) | payer MEDICARE, MEDICAID ==
[~2018-12-13] VITALS: Ht 162.6 cm; Wt 104.0 kg
[~2018-12-13 20:41] MED LIST changes: +GLIPIZIDE10 MG PO; +KEFLEX250 MG PO; +LABETALOL200 MG PO; +NORVASC5 M1 PO; +RAYALDEE30 MCG PO; +ROCALTROL0.25 MCG PO
[2018-12-13 21:10] LABS: IMMATURE GRANULOCYTES 0.4 % (0.0-5.0); MEAN CORPUSCULAR HGB CONC 32.5 g/L CALC (32.0-36.0); NEUT# 6.61 thou/uL (2.00-7.15); RED BLOOD COUNT 4.43 mill/uL (4.20-5.60); RED CELL DISTRI WIDTH 14.9 % (11.5-15.5)
[2018-12-13 21:11] LABS: HEMATOCRIT 38.1 % (37.0-47.0); HEMOGLOBIN 12.4 g/dl (12.0-16.0)
[2018-12-13 21:29] LABS: ALBUMIN 3.9 g/dL (3.2-5.0); ALKALINE PHOSPHATASE 116 u/l (38-126); ANION GAP 15 (6-22 (CALC)); BILIRUBIN, TOTAL 0.6 mg/dL (0.0-1.4); BUN 36 mg/dL (8-23); BUN/CREATININE RATIO 8 (12-20 (CALC)); CARBON DIOXIDE 24 mmol/l (22-30); CHLORIDE 104 mmol/l (95-108); CREATININE 4.5 mg/dL (0.5-1.0); GFR 10 ML/MIN (>=60 (CALC)); GFR FOR AFR.AMER. 12 ML/MIN (>=60 (CALC)); POTASSIUM 4.5 mmol/l (3.5-5.1); SGOT/AST 16 u/l (9-36); SODIUM 139 mmol/l (137-146); TOTAL PROTEIN 7.6 g/dL (6.3-8.2)
[2018-12-13 21:41] LABS: MYOGLOBIN 194 ng/mL (0 - 62)
[2018-12-13 22:38] LABS: URINE BILIRUBIN - DIPSTICK NEGATIVE (NEGATIVE); URINE BLOOD DIPSTICK SMALL (NEGATIVE); URINE COLOR YELLOW; URINE KETONE NEGATIVE (NEGATIVE); URINE LEUK ESTERASE NEGATIVE (NEGATIVE); URINE NITRITE - DIPSTICK NEGATIVE (Negative); URINE PROTEIN - DIPSTICK >=300 mg/dL (NEG-TRACE); URINE UROBILINOGEN - DIPSTICK 0.2 E.U./dL (0.2)
[2018-12-13 22:56] LABS: URINE GLUCOSE - DIPSTICK NEGATIVE (NEGATIVE)
[2018-12-13 22:57] LABS: URINE BACTERIA MANY hpf; URINE SQUAMOUS EPITHELIAL CELL MANY EPI/hpf (0-FEW)
[2018-12-13 23:18] VITALS: BP 158/78
[2018-12-14] VITALS (10 sets, daily range): BP systolic 135–185; BP diastolic 54–90
[2018-12-14 05:19] LABS: CREATININE 4.3 mg/dL (0.5-1.0); POTASSIUM 4.7 mmol/l (3.5-5.1)
[2018-12-14 06:11] LABS: BILIRUBIN, TOTAL 0.5 mg/dL (0.0-1.4)
[2018-12-14 06:12] LABS: ALBUMIN 2.9 g/dL (3.2-5.0)
[2018-12-14 12:04] LABS: URINE BILIRUBIN - DIPSTICK NEGATIVE (NEGATIVE); URINE BLOOD DIPSTICK TRACE-LYSED (NEGATIVE); URINE CLARITY SL CLOUDY; URINE COLOR YELLOW; URINE GLUCOSE - DIPSTICK 250 mg/dL (NEGATIVE); URINE KETONE NEGATIVE (NEGATIVE); URINE LEUK ESTERASE NEGATIVE (Negative); URINE NITRITE - DIPSTICK NEGATIVE (Negative); URINE PROTEIN - DIPSTICK 100 mg/dL (NEG-TRACE); URINE UROBILINOGEN - DIPSTICK 0.2 E.U./dL (0.2)
[2018-12-14 12:09] LABS: URINE EPITHELIAL CELLS MODERATE EPI/hpf (0-FEW); URINE RBC 0-2 RBC/hpf (0-5)
[2018-12-14] MEDS ORDERED: ALBUTEROL SUL0.083 % IN (14:30)
[2018-12-14] MEDS ORDERED: AMLODIPINE BESY10 MG PO (14:31)
[2018-12-14] MEDS ORDERED: [UNRECOGNIZED DRUG - SUPPLY] (14:33)
[2018-12-14] MEDS ORDERED: ROCALTROL0.25 MCG PO (14:34)
[2018-12-14] MEDS ORDERED: CLONIDINE0.1 MG PO (14:35)
[2018-12-14] MEDS ORDERED: FOLIC ACID400 MC1 PO (14:36)
[2018-12-14] MEDS ORDERED: HUMULIN 70/30 SC ×2 (14:38→16:26)
[2018-12-14] MEDS ORDERED: LORTAB 1010 MG PO (14:40)
[2018-12-14] MEDS ORDERED: LABETALOL200 MG PO (14:42)
[2018-12-14] MEDS ORDERED: LIDOCAINE5 % TOP (14:44)
[2018-12-14] MEDS ORDERED: ZESTRIL10 M1 PO (14:44)
[2018-12-14] MEDS ORDERED: MULTIVITAMI9 PO (14:45)
[2018-12-14] MEDS ORDERED: PRAMIPEXOLE0.125 M1 PO (14:47)
[2018-12-14] MEDS ORDERED: PRAVASTATIN20 MG PO (14:47)
[2018-12-14] MEDS ORDERED: LYRICA25 MG PO (14:48)
[2018-12-14] MEDS ORDERED: RAYALDEE30 MCG PO (14:49)
[2018-12-14] MEDS ORDERED: TRAZODONE50 MG PO (14:49)
[2018-12-14] MEDS ORDERED: VALPROIC ACD250 M3 PO (14:50)
[2018-12-14] MEDS ORDERED: [UNRECOGNIZED DRUG - SUPPLY] (14:51)
[2018-12-15] VITALS (7 sets, daily range): BP systolic 151–180; BP diastolic 70–84
== END 2018-12-15 13:10 ==
LOC: ED 20:41 → ED-I 20:50 → ED 20:50 → ED-I 22:24 → ED 22:44 → MS2 22:45
PROVIDERS: Emergency Medicine; ADMIT Internal Medicine Geriatric Medicine; ATTEND Internal Medicine Geriatric Medicine
DX: E11.649 Type 2 diabetes mellitus with hypoglycemia without coma (principal); E11.42 Type 2 diabetes mellitus with diabetic polyneuropathy; E11.22 Type 2 diabetes mellitus with diabetic chronic kidney disease; I13.0 Hypertensive heart and chronic kidney disease with heart failure and stage 1 through stage 4 chronic kidney disease, or unspecified chronic kidney disease; I50.32 Chronic diastolic (congestive) heart failure; N18.4 Chronic kidney disease, stage 4 (severe); E11.51 Type 2 diabetes mellitus with diabetic peripheral angiopathy without gangrene; E11.21 Type 2 diabetes mellitus with diabetic nephropathy; J44.9 Chronic obstructive pulmonary disease, unspecified; F03.90 Unspecified dementia, unspecified severity, without behavioral disturbance, psychotic disturbance, mood disturbance, and anxiety; M19.90 Unspecified osteoarthritis, unspecified site; F19.20 Other psychoactive substance dependence, uncomplicated; F41.1 Generalized anxiety disorder; F32.9 Major depressive disorder, single episode, unspecified; G40.909 Epilepsy, unspecified, not intractable, without status epilepticus; I25.2 Old myocardial infarction; Z79.4 Long term (current) use of insulin; E87.5 Hyperkalemia; Z91.19 Patient's noncompliance with other medical treatment and regimen

== ENCOUNTER 2018-12-21 13:43 | Inpatient (IN) | payer MEDICARE, MEDICAID ==
[~2018-12-21] VITALS: Ht 162.6 cm; Wt 108.4 kg
[2018-12-21] VITALS (8 sets, daily range): BP systolic 117–186; BP diastolic 66–113
[~2018-12-21 13:43] MED LIST changes: +ALBUTEROL SUL0.083 % IN; +AMLODIPINE BESY10 MG PO; +CLONIDINE0.1 MG PO; +FOLIC ACID400 MC1 PO; +LIDOCAINE5 % TOP; +LORTAB 1010 MG PO; +LYRICA25 MG PO; +MULTIVITAMI9 PO; +TRAZODONE50 MG PO; +VALPROIC ACD250 M3 PO; +[UNRECOGNIZED DRUG - SUPPLY]; +[UNRECOGNIZED DRUG - SUPPLY]
--- NOTE | 2018-12-21 13:43 | NUR ---
PATIENT ARRIVES TO ED VIA. EMS ALERT AND ORIENTED X3.
[2018-12-21 14:24] LABS: HEMATOCRIT 37.8 % (37.0-47.0); IMMATURE GRANULOCYTES 0.3 % (0.0-5.0); MEAN CELL VOLUME 86.7 fL CALC (80.0-100.0); MEAN CORPUSCULAR HGB 27.5 pG CALC (26.0-32.0); MEAN CORPUSCULAR HGB CONC 31.7 g/L CALC (32.0-36.0); NEUT# 4.07 thou/uL (2.00-7.15); RED BLOOD COUNT 4.36 mill/uL (4.20-5.60); RED CELL DISTRI WIDTH 14.6 % (11.5-15.5)
[2018-12-21 14:44] LABS: ALKALINE PHOSPHATASE 121 u/l (38-126); BILIRUBIN, TOTAL 0.4 mg/dL (0.0-1.4); BUN 50 mg/dL (8-23); CARBON DIOXIDE 22 mmol/l (22-30); CHLORIDE 103 mmol/l (95-108); SGOT/AST 20 u/l (9-36); SODIUM 136 mmol/l (137-146)
[2018-12-21 14:49] LABS: ALBUMIN 3.9 g/dL (3.2-5.0); ANION GAP 18 (6-22 (CALC)); BUN/CREATININE RATIO 10 (12-20 (CALC)); CREATININE 5.2 mg/dL (0.5-1.0); GFR 8 ML/MIN (>=60 (CALC)); GFR FOR AFR.AMER. 10 ML/MIN (>=60 (CALC)); POTASSIUM 6.9 mmol/l (3.5-5.1); TOTAL PROTEIN 7.9 g/dL (6.3-8.2)
--- NOTE | 2018-12-21 16:02 | NUR ---
PT WAS STARTED ON D-10 DRIP AT 125 ML/HR PER DR JOY VERBAL ORDER. AFTER POTASSIUM WAS SEEN ELEVATED, SHE WAS GIVEN AN AMP OF D-50, REGULAR INSULIN 5 UNITS IVP, CALCIUM GLUCONATE ONE AMP. PT REMAINS ALERT AND ORIENTED X 3. NUMEROUS VISITORS AT BEDSIDE.
[2018-12-21] MEDS ORDERED: HYDROCODONE/ACE1 TAB PO (16:05)
[2018-12-21] MEDS ORDERED: LYRICA25 MG PO (16:07)
--- NOTE | 2018-12-21 16:17 | NUR ---
PT ARRIVED TO ICU3 BY STRETCHER, IN STABLE CONDITION, WITH TELE.
--- NOTE | 2018-12-21 16:30 | NUR ---
PT BROUGHT TO ER AFTER NOT BEING ABLE TO BE AROUSED AT HOME. PT DENIES PAIN. DENIES N/V/D. LAST BM YESTERDARY. DENIES DIZZINESS OR LIGHTHEADEDNESS. DENIES SOB. LIVES AT HOME WITH FAMILY, USES INSULIN FOR DM. NO HEARING AIDS. NO DENTURES. NEEDS GLASSES BUT DOESNT HAVE THEM. DENIES ALCOHOL. USES CHEW OCCASSIONALY. LATTER-DAY: [employer]. DOES NOT DRIVE. USES A WALKER & CANE AT HOME TO WALK. DRINKS MILK TO MOVE HER BOWELS. BREATHING EVEN/UNLABORED, LUNGS CTA. PULSES STRONG x4. MILD EDEMA TO BILATERAL FEET. NSR ON TELE. ABD GRAVID/SOFT/ ACTIVE BS. PT A&Ox4, EYES PERRLA @3. 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 CORRECT NAME/. SPEECH CLEAR. SKIN COOL/DRY. DAUGHTER @BEDSIDE; GERALDINE GUTIERREZ [phone].
--- NOTE | 2018-12-21 16:32 | NUR ---
PT TAKEN TO ICU-3 WITHOUT INCIDENT, REPORT WAS TO AMARILIS.
--- NOTE | 2018-12-21 16:46 | NUR ---
DR CHAIDEZ CONTACTED RE: ACCUCHECK OF 59. RBVO FOR D10 @100ML/HR & ACCUCHECK Q2H. STATES HE WILL PLACE OTHER ORDERS HIMSELF. D10 IVF STARTED THAT CAME UP WITH PT FROM ER.
--- NOTE | 2018-12-21 17:01 | NUR ---
PHARMACY @BEDSIDE FOR MED REC.
--- NOTE | 2018-12-21 17:02 | NUR ---
CALLED FOR PHIL
--- NOTE | 2018-12-21 17:12 | NUR ---
PT SITTING UP IN BED, EATING DINNER.
[2018-12-21] MEDS ORDERED: TRAZODONE50 MG PO (17:15)
[2018-12-21] MEDS ORDERED: LEG CRAMPS1 TAB PO (17:16)
[2018-12-21 17:22] LABS: URINE BILIRUBIN - DIPSTICK NEGATIVE (NEGATIVE); URINE BLOOD DIPSTICK TRACE-INTACT (NEGATIVE); URINE COLOR YELLOW; URINE GLUCOSE - DIPSTICK NEGATIVE (NEGATIVE); URINE KETONE NEGATIVE (NEGATIVE); URINE LEUK ESTERASE NEGATIVE (NEGATIVE); URINE NITRITE - DIPSTICK NEGATIVE (Negative); URINE PH 5.5 (4.5-8.0); URINE PROTEIN - DIPSTICK 100 mg/dL (NEG-TRACE); URINE UROBILINOGEN - DIPSTICK 0.2 E.U./dL (0.2)
--- NOTE | 2018-12-21 17:22 | NUR ---
RBVO FOR CLONIDINE 0.2MG PO NOW FOR BP OF 163/113.
--- NOTE | 2018-12-21 17:27 | NUR ---
TESFAYEER PLACED ON PT, TYMP TEMP 95.9
[2018-12-21 17:33] LABS: URINE BACTERIA FEW hpf; URINE RBC 0-2 RBC/hpf (0-5); URINE SQUAMOUS EPITHELIAL CELL FEW EPI/hpf (0-FEW); URINE WBC 0-2 WBC/hpf (0-5)
--- NOTE | 2018-12-21 17:50 | NUR ---
DR CHAIDEZ @BEDSIDE WITH PT.
--- NOTE | 2018-12-21 18:25 | NUR ---
16F CATH GARCIA PLACED, USING STERILE PROCEDURE, ATTACHED TO LEFT LEG. EBONI RIOS REMAINS ON MEDIUM.
--- NOTE | 2018-12-21 19:45 | NUR ---
Patient resting in bed, A&Ox4, on room air, SR on monitor, has a nallely hugger, tympanic temp 96.0, denies pain or needs at this time, iv site intact with D10 infusing per orders, repositioned for comfort, no skin issues noted, will follow up with frequently roundings, call song at reach.
[2018-12-21 22:29] LABS: CREATININE 4.8 mg/dL (0.5-1.0)
[2018-12-21 22:33] LABS: POTASSIUM 7.4 mmol/l (3.5-5.1)
--- NOTE | 2018-12-21 22:51 | NUR ---
SPOKE TO DR CHAIDEZ AT THIS TIME; AWARE OF CRITICAL K 7.4 AND BLOOD GLUCOSE CHECK BEING DONE Q2H PER HIS ORDERS. AWARE OF 191 GLUCOSE CHECK AT 2200, NEW ORDERS RECEIVED TO D'C Q2H ACCU AND START AC&HS, KAYEXALATE 30G PO NOW AND ANOTHER 30G IN FOUR HRS. ORDER EKG STAT. NEW ORDERS FAXED TO [facility] AND NOTIFIED RT OF STAT EKG, PATIENT IS SR ON THE MONITOR, VSS, AFEBRILE. WILL CONTINUE TO MONITOR CLOSELY, CALL QUINTERO AT REACH. DENIES PAIN OR NEEDS AT THIS TIME, REPOSITIONED FOR COMFORT.
[2018-12-22] VITALS (13 sets, daily range): BP systolic 137–176; BP diastolic 72–98
--- NOTE | 2018-12-22 00:12 | NUR ---
ADMINISTERED kAYEXALATE PO PER MD ORDERS, TOLERATED WELL, WILL MONITOR CLOSELY, CALL QUINTERO AT REACH, REPOSITIONED FOR COMFORT, TYMPANIC TEMP 97.0, PATIENT WANTS TTHE EBONI RIOS ON, STATES "I'M SO COLD." WILL CONTINUE TO RECHECK TEMPERATURE FREQUENTLY, EBONI RIOS SET TO LOWEST TEMP.
--- NOTE | 2018-12-22 01:55 | NUR ---
Patient is resting in bed, awake, denies pain or sob, on room air, resp even and unlabored, vss, fingerstick blood glucose check 160 at this time, D10 infusing per MD orders, tympanic temp 97.2, nallely hugger at lowest temp, patient c/o feeling cold, encouraged to reposition to prevent pressure ulcers, voices understanding, call song at reach. Will follow up with frequently roundings.
--- NOTE | 2018-12-22 02:30 | NUR ---
nallely bello off at at this time; patient temp 98.0 Tympanic.
--- NOTE | 2018-12-22 04:08 | NUR ---
Administered 2nd dose of kayexalate po now, vss, patient states is cold, temp 96.8 tympanic, requesting the nallely hugger on. Repositioned for comfort to right side with pillow supporting back. Call song at reach, no s/s of distress noted. Will follow up with frequently roundings.
[2018-12-22 05:26] LABS: HEMATOCRIT 33.5 % (37.0-47.0); HEMOGLOBIN 10.8 g/dl (12.0-16.0); IMMATURE GRANULOCYTES 0.3 % (0.0-5.0); MEAN CELL VOLUME 85.9 fL CALC (80.0-100.0); MEAN CORPUSCULAR HGB 27.7 pG CALC (26.0-32.0); MEAN CORPUSCULAR HGB CONC 32.2 g/L CALC (32.0-36.0); NEUT# 3.28 thou/uL (2.00-7.15); RED BLOOD COUNT 3.9 mill/uL (4.20-5.60); RED CELL DISTRI WIDTH 14.5 % (11.5-15.5)
[2018-12-22 05:42] LABS: BILIRUBIN, TOTAL 0.4 mg/dL (0.0-1.4); CREATININE 4.9 mg/dL (0.5-1.0); TOTAL PROTEIN 6.4 g/dL (6.3-8.2)
[2018-12-22 06:05] LABS: ALBUMIN 3.1 g/dL (3.2-5.0); POTASSIUM 7.3 mmol/l (3.5-5.1)
--- NOTE | 2018-12-22 06:30 | NUR ---
SPOKE TO DR. CHAIDEZ, AWARE OF CRITICAL k 7.3, NEW ORDERS PLACED BY . FINGERSTICK GLUCOSE CHECK 131 THIS AM.
--- NOTE | 2018-12-22 06:50 | NUR ---
RECVD REPORT FROM DESIRAE ERNST @START OF SHIFT.
--- NOTE | 2018-12-22 07:05 | NUR ---
REPORT PROVIDED TO DAYSHIFT NURSE, AWARE OF CRITICAL POTASSIUM LAB THIS AM. DR. CHAIDEZ PLACED AN ORDER FOR D25% AMPULE, AWARE THAT ORDER NEEDS CLARIFICATION.
--- NOTE | 2018-12-22 07:14 | NUR ---
DR CHAIDEZ CONTACTED ABOUT MEDICATIONS. AWAITING NEW ORDERS.
--- NOTE | 2018-12-22 08:30 | NUR ---
RT @BEDSIDE FOR STAT EKG.
--- NOTE | 2018-12-22 09:29 | NUR ---
LAB @BEDSIDE FOR DRAW.
--- NOTE | 2018-12-22 10:14 | NUR ---
lab @bedside for redraw d/t hemolized blood
[2018-12-22 11:03] LABS: CREATININE 4.7 mg/dL (0.5-1.0)
[2018-12-22 11:09] LABS: POTASSIUM 7.4 mmol/l (3.5-5.1)
--- NOTE | 2018-12-22 11:24 | NUR ---
DR CHAIDEZ NOTIFIED OF CRITICAL POTASSIUM RESULT; STATES "WE WILL WATCH IT". NO EKG/TELE CHANGES.
--- NOTE | 2018-12-22 11:44 | NUR ---
PT SITTING UP IN BED, EATING LUNCH.
--- NOTE | 2018-12-22 12:04 | NUR ---
DAUGHTER ASKED TO BE TRANSFERED TO HOME HEALTH CARE. PT SLEEPING IN ROOM. NO S/S OF DISTRESS AT THIS TIME.
--- NOTE | 2018-12-22 13:41 | NUR ---
VISITOR @BEDSIDE, WOKE PT UP.
--- NOTE | 2018-12-22 14:08 | NUR ---
PTS DAUGHTER HAS CALLED MULTIPLE TIMES TODAY, 6x, FOR UPDATES ON MOM. PT IN/OUT OF NAPPING TODAY. BAIRHUGGER REMAINS ON.
--- NOTE | 2018-12-22 14:25 | NUR ---
BEN JENKINS, @BEDSIDE.
--- NOTE | 2018-12-22 15:30 | NUR ---
PT SLEEPING IN BED, NO S/S OF DISTRESS @ THIS TIME, VSS. WILL CONTINUE TO MONITOR.
--- NOTE | 2018-12-22 15:57 | NUR ---
SISTER, IRWIN, CALLED TO INFORM THE MD THAT SHE THINKS PT SHOULD GO TO REHAB AFTER DC INSTEAED OF GOING BACK HOME WITH HOME HEALTH & A STRESSFUL ENVIRONMENT. [phone] LAB @BEDSIDE FOR DRAW.
[2018-12-22 16:12] LABS: HEMATOCRIT 32.5 % (37.0-47.0); HEMOGLOBIN 10.6 g/dl (12.0-16.0); IMMATURE GRANULOCYTES 0.3 % (0.0-5.0); MEAN CELL VOLUME 85.5 fL CALC (80.0-100.0); MEAN CORPUSCULAR HGB 27.9 pG CALC (26.0-32.0); MEAN CORPUSCULAR HGB CONC 32.6 g/L CALC (32.0-36.0); NEUT# 3.22 thou/uL (2.00-7.15); RED BLOOD COUNT 3.8 mill/uL (4.20-5.60); RED CELL DISTRI WIDTH 14.3 % (11.5-15.5)
[2018-12-22 16:29] LABS: ALBUMIN 3.1 g/dL (3.2-5.0); BILIRUBIN, TOTAL 0.4 mg/dL (0.0-1.4); CREATININE 4.6 mg/dL (0.5-1.0); TOTAL PROTEIN 6.5 g/dL (6.3-8.2)
[2018-12-22 16:31] LABS: POTASSIUM 5.7 mmol/l (3.5-5.1)
--- NOTE | 2018-12-22 17:26 | NUR ---
DR CHAIDEZ ON UNIT FOR ASSESSMENT. FAXED NEW ORDER TO .
--- NOTE | 2018-12-22 17:39 | NUR ---
PT SITTING UP IN BED, EATING DINNER. DAUGHTER & FRIEND @BEDSIDE.
--- NOTE | 2018-12-22 17:43 | NUR ---
DAUGHTER STATES FISH IS TOO DRY, REQUEST DIFFERENT FOOD FROM [employer].
--- NOTE | 2018-12-22 18:12 | NUR ---
PTS COTTAGE CHEESE/FRUIT LABELED & PLACED IN PT FRIDGE. EMS IV NOT CHANGED TODAY D/T DIFFICULTY FINDING NEW SITE.
--- NOTE | 2018-12-22 18:28 | NUR ---
PT EDUCATED ON MAG CITRATE AFTER HOUSE SUP BROUGHT MED. BSC & WALKER SET UP BESIDE BED THIS AM, STILL IN PLACE. CALLBELL W/IN REACH FOR STAFF ASSISTANCE.
--- NOTE | 2018-12-22 19:00 | NUR ---
RECEIVED REPORT FROM AM NURSE. PATIENT IN BED RESTING. NO SIGNS OF DISTRESS. WILL CONTINUE TO MONITOR PATIENT.
--- NOTE | 2018-12-22 20:00 | NUR ---
patient resting in bed. patient bs 115. no insulin given. patient with no complaints of pain or discomfort. only stated she was cold. assessment completed. vitals stable. will continue to monitor patient.
--- NOTE | 2018-12-22 22:00 | NUR ---
PATIENT ASSISTED TO BSC. PATIENT HAD VERY LARGE BM. PATIENT WITH NO COMPLAINTS OF PAIN OR DISCOMFORT. PATIENT ASSISTED BACK TO BED. VITALS STABLE. DAUGHTER UPDATED OVER THE PHONE. ALL QUESTIONS ANSWERED. PATIENTS CALL LIGHT WITHIN REACH. BELONGINGS CLOSE TO PATIENT. WILL CONTINUE TO MONITOR.
[2018-12-23] VITALS (8 sets, daily range): BP systolic 131–171; BP diastolic 66–84
--- NOTE | 2018-12-23 | NUR ---
PATIENT SLEEPING PATIENT WITH NO COMPLAINTS OF PAIN OR DISCOMFORT. PATIENT VITALS STABLE. NO SIGNS OF DISTRESS. CALL LIGHT WITHIN REACH. WILL CONTINUE TO MONITOR PATIENT.
--- NOTE | 2018-12-23 02:00 | NUR ---
PATIENT ASSISTED TO BSC. PATIENT HAD ANOTHER BM. PATIENT IV IN RFA REMOVED. IV INFILTRATED. ICE PACK APPLIED AND ARM ELEVATED. PATIENT IN NO DISTRESS. PATIENTS VITALS STABLE. WILL CONTINUE TO MONITOR PATIENT.
--- NOTE | 2018-12-23 04:00 | NUR ---
PATIENT SLEEPING. PATIENT WITH NO SIGNS OF DISTRESS. VITALS STABLE. WILL CONTINUE TO MONITOR PATIENT.
--- NOTE | 2018-12-23 06:28 | NUR ---
PATIENT REST WELL. CALLED AND WAS NOTIFIED THAT PATIENTS IV INFILTRATED AND IS VERY SWOLLEN. HE STATED TO DC DEXTROSE 10, ELEVATE ARM, AND TO AWAIT MORNING LAB RESULTS. HE STATES THAT SHE SHOULD DO BETTER NOW THAT SHE HAS A DIET AND CAN HAVE PO. PATIENT STABLE. ARM ELEVATED AND ICE APPLIED. VITALS STABLE. NO COMPLAINTS. WILL CONTINUE TO MONITOR PATIENT.
--- NOTE | 2018-12-23 07:05 | NUR ---
pt awake in bed; no apparent distress noted; pt offers no complaints other that right arm being sore; assessment completed at this time; pt alert and oriented; denies pain; no n/v/sob noted; resp even and unlabored; lungs clear/ diminished; skin color wnl; ra; no cough noted; hr reg; weak right pedal pulses; edema noted to ble; sr on monitor; abd soft with bs present; no bm noted per insurance underwriter; lerma to gravity draining clear yellow urine; cath yoon intact; no iv access; right arm noted edematous with weeping; blisters/skin breakdown noted; see photo oon chart; nallely hugger intact on med heat; temp 97.1; repositioning encouraged; plan of care/ meds/ xray explained; call light within reach; will conitnue to monitor
--- NOTE | 2018-12-23 07:50 | NUR ---
lab present at bedside; unable to obtain am labs; will continue to monitor
--- NOTE | 2018-12-23 08:00 | NUR ---
awake in bed; offers no complaints; pt has declined getting up to recliner; commercial insurance underwriter unable to palpate AV fistula to la; ra remains elevated; sr on monitor; call light within reach; will continue to monitor
--- NOTE | 2018-12-23 08:15 | NUR ---
Dr Wong present at bedside to assess pt and discuss plan of care; informed pt has had 2 lg bm last night; orders received to to dc abd xray; med/ surg transfer explained; staff to attempt to obtain labs; will continue to monitor
--- NOTE | 2018-12-23 10:00 | NUR ---
awake in bed; no apparent distress noted; pt offers no complaints; sr on monitor; lerma to gravity; staff unable to obtain labs; will continue to monitor
--- NOTE | 2018-12-23 10:16 | NUR ---
daughter Kath called per this assembly instructions writer in regards to AV fistula to left arm; daughter states Dr Wong sent her mom to a kidney specialist and she hasn't seen that doctor in "I don't know how many years"; daughter unable to provide this assembly instructions writer with facility whom place fistula; updated on plan of care; will continue to monitor
--- NOTE | 2018-12-23 10:28 | NUR ---
Dr Wong called per this pattern chart writer due to inability of staff to obtained labs; permission received to draw labs from left hand; orders received to have AV fistula anastomosis/patency checked via doppler/us; will continue to monitor
[2018-12-23 11:17] LABS: HEMATOCRIT 34.5 % (37.0-47.0); HEMOGLOBIN 11.3 g/dl (12.0-16.0); IMMATURE GRANULOCYTES 0.3 % (0.0-5.0); MEAN CELL VOLUME 84.4 fL CALC (80.0-100.0); MEAN CORPUSCULAR HGB 27.6 pG CALC (26.0-32.0); MEAN CORPUSCULAR HGB CONC 32.8 g/L CALC (32.0-36.0); NEUT# 4.04 thou/uL (2.00-7.15); RED BLOOD COUNT 4.09 mill/uL (4.20-5.60); RED CELL DISTRI WIDTH 14.3 % (11.5-15.5)
[2018-12-23 12:05] LABS: ALBUMIN 3.1 g/dL (3.2-5.0); BILIRUBIN, TOTAL 0.4 mg/dL (0.0-1.4); CREATININE 4.7 mg/dL (0.5-1.0); TOTAL PROTEIN 6.5 g/dL (6.3-8.2)
--- NOTE | 2018-12-23 12:10 | NUR ---
awake in bed; offers no complaints; denies needs; sr on monitor; lerma to gravity; repositions self; nallely bello cont; pt updated on plan of care including u/s left upper arm; call light within reach; will continue to monitor
[2018-12-23 12:11] LABS: POTASSIUM 6.1 mmol/l (3.5-5.1)
--- NOTE | 2018-12-23 13:35 | NUR ---
Dr Wong called per production underwriter in regards to potassium results and prelim ultrasound results; orders received and on chart; pt to remain in icu as a overflow at this time; will continue to monitor
--- NOTE | 2018-12-23 14:08 | NUR ---
awake in bed; plan of care explained; kayexlate administered and tolerated well; no iv access; sr on monitor; lerma to gravity; pt to remain a med surg overflow until potassium reassessed at 1800; will continue to monitor
--- NOTE | 2018-12-23 15:36 | NUR ---
up to chair; assisted bath completed with complete linen change; oral care per pt; catheter care per automatic typewriter inspector; remains up to chair; will continue to monitor
--- NOTE | 2018-12-23 16:01 | NUR ---
awake in chair; no apparent distress noted; pt offers no complaints; no iv access; lerma to gravity; sr on monitor; pt deny needs; call light within reach; will continue to monitor
--- NOTE | 2018-12-23 18:13 | NUR ---
awake in bed; offers no complaints; no distress noted; no iv access; sr on monitor; call light within reach
--- NOTE | 2018-12-23 19:45 | NUR ---
ASSESSMENT COMPLETED. NO DISTRESS NOTED. VS OBTAINED. DENIES NEEDS/PAIN. BLISTERING AND SMALL OPEN AREAS NOTED TO RIGHT ARM ALONG WITH EDEMA NOTED; PHOTOS IN CHART. PT. WITH NO IV SITE AND PER REPORT MD IS AWARE OF THIS. GARCIA CATHETER INTACT AND DRAINING AT GRAVITY LEVEL. ICE CHIPS PROVIDED. BEAR HUGGER IN PLACE AND PT. WITH TEMP OF 96.8. ENCOURAGED TO CALL FOR ANY NEEDS. CALL LIGHT IS IN REACH. WILL CONTINUE TO MONITOR.
--- NOTE | 2018-12-23 21:17 | NUR ---
SCHED MEDS GIVEN; PT. VOICES NO CONCERNS. PT. COMPLETED 100% OF SNACK PROVIDED. SCHED MEDS GIVEN. ENCOURAGED TO CALL FOR ANY NEEDS. CALL LIGHT IS IN REACH.
--- NOTE | 2018-12-23 23:14 | NUR ---
PT. C/O RIGHT ARM PAIN WHERE BLISTERING AND SMALL OPEN AREAS ARE NOTED; MEDICATED WITH ORDERED LORTAB, WILL REASSESS. ICE CHIPS PROVIDED. DENIES FURTHER NEEDS. CATHETER BAG EMPTIED. CALL LIGHT IS IN REACH. WILL CONTINUE TO MONITOR.
[2018-12-24] VITALS (8 sets, daily range): BP systolic 131–184; BP diastolic 69–85
--- NOTE | 2018-12-24 02:10 | NUR ---
PT. RESTING IN BED WITH NO DISTRESS NOTED; DENIES NEEDS/PAIN. ENCOURAGED TO CALL FOR ANY NEEDS. CALL LIGHT IS IN REACH.
--- NOTE | 2018-12-24 04:19 | NUR ---
PT. RESTING IN BED WITH NO DISTRESS NOTED; DENIES NEEDS AND VOICES NO CONCERNS. ICE CHIPS PROVIDED. MANAUL B/P OBTAINED AND 168/82; ENCOURAGED TO CALL FOR ANY NEEDS. CALL LIGHT IS IN REACH. WILL CONTINUE TO MONITOR.
--- NOTE | 2018-12-24 05:30 | NUR ---
GARCIA CATHETER BAG EMPTIED OF 450 MLS OF CLEAR YELLOW URINE AND DRAINING AT GRAVITY LEVEL. PT. DENIES NEEDS. LAB AT BEDSIDE FOR AM LABWORK.
[2018-12-24 05:46] LABS: HEMATOCRIT 31.8 % (37.0-47.0); HEMOGLOBIN 10.4 g/dl (12.0-16.0); IMMATURE GRANULOCYTES 0.2 % (0.0-5.0); MEAN CORPUSCULAR HGB 27.8 pG CALC (26.0-32.0); MEAN CORPUSCULAR HGB CONC 32.7 g/L CALC (32.0-36.0); RED BLOOD COUNT 3.74 mill/uL (4.20-5.60); RED CELL DISTRI WIDTH 14.3 % (11.5-15.5)
[2018-12-24 06:32] LABS: ALBUMIN 2.9 g/dL (3.2-5.0); BILIRUBIN, TOTAL 0.4 mg/dL (0.0-1.4); CREATININE 4.6 mg/dL (0.5-1.0)
[2018-12-24 06:36] LABS: POTASSIUM 5.3 mmol/l (3.5-5.1)
--- NOTE | 2018-12-24 07:24 | NUR ---
pt awake in bed; no apparent distress noted; pt offers no complaints; assessment completed at this time; pt alert and oriented; denies pain; no n/v/ sob noted; resp even and unlabored; lungs clear/diminished bases; skin color wnl; ra; hr reg; trace edema noted to ble; sr on monitor; abd soft/ distended with bs present; no bm noted per medical underwriter; lerma to gravity draining well; cath strap intact; no iv access; abrasions/ blisters noted to rfa; pt with compliants of soreness at right arm; cool packs to be applied; up to chair for breakfast; plan of care/ am meds explained; call light within reach; will continue to monitor
--- NOTE | 2018-12-24 08:08 | NUR ---
awake in chair; offers no complaints; no apparent distress noted; no iv access; sr on monitor; call light within reach; will continue to monitor
--- NOTE | 2018-12-24 08:15 | NUR ---
Dr Wong present at bedside to assess pt and discuss plan of care
--- NOTE | 2018-12-24 09:38 | NUR ---
report called to med surg Nikolas;
--- NOTE | 2018-12-24 09:51 | NUR ---
lerma catheter removed; lerma emptied for 275cc; pt transferred to med surg tele 261 via in stable condition with all personal belongings;
--- NOTE | 2018-12-24 09:52 | NUR ---
PT TRANSPORTED TO [facility] VIA WC ACCOMPIANED BY GINO RAUSCH. PT AMBULATED W/ STEADY GAIT. VS DONE. PT A/O X3. RESP SHALLOW. UPPER LOBES CLEAR, LOWER LOBES DIMINISHED. TELE APPLIED. BOWEL SOUNDS ACTIVE X4; ABDOMEN DISTENDED. STRONG RADIAL, WEAK PEDAL PULSES. NO IV SITE AT THIS TIME. +1 EDEMA TO BLE. SWELLING NOTED TO BILATERAL UPPER EXTREMITY; MORE PROMINENT ON RT ARM. RT ARM HAS BLISTERS W/ FEW OPENINGS. PT DENIES ANY PAIN OR NEEDS. POC DISCUSSED. SAFETY PRECAUTIONS IN PLACE. CALL LIGHT IN REACH. WILL CONTINUE TO MONITOR.
--- NOTE | 2018-12-24 12:05 | NUR ---
PT RESTING. NO C/O PAIN OR NEEDS. CALL LIGHT IN REACH. WILL CONTINUE TO MONITOR.
--- NOTE | 2018-12-24 16:08 | NUR ---
PT RESTING. NO C/O PAIN OR NEEDS. CALL LIGHT IN REACH. WILL CONTINUE TO MONITOR.
--- NOTE | 2018-12-24 19:41 | NUR ---
REPORT FROM JESUS CURRIE. PT RESTING IN BED AT THIS TIME. ALERT AND ORIENTED. NO APPARENT DISTRESS NOTED. PT DENIES ANY PAIN OR DISCOMFORT. SEIZURE PRECAUTIONS IN PLACE. DISCUSSED POC. PT VERBALIZED UNDERSTANDING. CALL LIGHT WITHIN REACH. WILL CONTINUE TO MONITOR.
--- NOTE | 2018-12-24 23:45 | NUR ---
PT RESTING IN BED WITH EYES CLOSED. EASILY AROUSED. NO APPARENT DISTRESS NOTED. VS STABLE. DENIES ANY PAIN OR DISCOMFORT. CALL LIGHT WITHIN REACH. WILL CONTINUE TO MONITOR.
--- NOTE | 2018-12-25 03:58 | NUR ---
PT RESTING IN BED. EASILY AROUSABLE. PT DENIES ANY CURRENT WANTS OR NEEDS. NO APPARENT DISTRESS NOTED. CALL LIGHT WITHIN REACH. WILL CONTINUE TO MONITOR.
[2018-12-25 05:01] VITALS: BP 156/76
[2018-12-25 05:11] LABS: HEMATOCRIT 33.3 % (37.0-47.0); HEMOGLOBIN 10.9 g/dl (12.0-16.0); IMMATURE GRANULOCYTES 0.3 % (0.0-5.0); MEAN CELL VOLUME 85.2 fL CALC (80.0-100.0); MEAN CORPUSCULAR HGB 27.9 pG CALC (26.0-32.0); MEAN CORPUSCULAR HGB CONC 32.7 g/L CALC (32.0-36.0); NEUT# 3.33 thou/uL (2.00-7.15); RED BLOOD COUNT 3.91 mill/uL (4.20-5.60)
[2018-12-25 05:34] LABS: CREATININE 4.6 mg/dL (0.5-1.0)
[2018-12-25 05:36] LABS: POTASSIUM 5.2 mmol/l (3.5-5.1)
--- NOTE | 2018-12-25 06:45 | NUR ---
REPORT RECEIVED. PT RESTING IN BED. WILL CONTINUE TO MONITOR
[2018-12-25 07:15] VITALS: BP 177/78
--- NOTE | 2018-12-25 07:15 | NUR ---
PT RESTING IN BED AWAKE AND WATCHING TV. PT IS ALERT AND ORIENTED X3. SHIFT ASSESSMENT COMPLETED AT THIS TIME. WILL COMTINUE TO MONITOR.
--- NOTE | 2018-12-25 08:29 | NUR ---
DR CHAIDEZ AT BEDSIDE AT THIS TIME
[2018-12-25 09:15] VITALS: BP 177/78
--- NOTE | 2018-12-25 10:00 | NUR ---
SPOKE WITH LONI AT DR WATKINS OFFICE SHE WILL CALL PATIENT TO SCHEDULE VEIN MAPPING ULTRASOUND AND ARTERIAL ULTRASOUND. SPOKE WITH ARIELLE AT DR SAVAGE PT HAS AN APPOINTMENT Friday12/28/18 AT 1030AM. SPOKE WITH ANDREY AT DR CHAIDEZ'S OFFICE APPOINTMENT SCHEDULED FOR Friday12/29/[address] CHAIDEZ NOTIFIED OF DR MCCOY' OFFICE REQUEST TO ENSURE PATIENT GOES TO SCHEDULED APPOINEMENTS
--- NOTE | 2018-12-25 10:20 | NUR ---
DISCHARGE INSTRUCTIONS REVIEWED WITH PATIENT AND DAUGHTER IN DEPTH. VERIFIED THAT HOME HEALTH WOULD BE FOLLOWING UP. HOME HEALTH WILLBE SEEING PATIENT TOMORROW. ENCOURAGED PATIENT TO GO TO ALL FOLLOW UP APPTS.
--- NOTE | 2018-12-25 10:31 | NUR ---
Discharge instructions given. Patient verbalizes understanding of same. Discharged in stable condition via Wheelchair to Home with family. All belongings sent with pt.
== END 2018-12-25 10:30 | disposition home or self-care (01) | DRG 638 ==
LOC: ED 13:43 → ED-I 14:54 → ED 15:08 → ICU 15:09 → ED 15:09 → ICU 12-24 09:52 → MS2 12-24 09:52
PROVIDERS: Family Medicine; ADMIT Internal Medicine Geriatric Medicine; ATTEND Internal Medicine Geriatric Medicine
PROC: 0T9B70Z Drainage of Bladder with Drainage Device, Via Natural or Artificial Opening (ICD-10-PCS; principal; 2018-12-21)
DX: E11.649 Type 2 diabetes mellitus with hypoglycemia without coma (principal); I13.0 Hypertensive heart and chronic kidney disease with heart failure and stage 1 through stage 4 chronic kidney disease, or unspecified chronic kidney disease; N17.9 Acute kidney failure, unspecified; E87.5 Hyperkalemia; E11.22 Type 2 diabetes mellitus with diabetic chronic kidney disease; I50.9 Heart failure, unspecified; N18.4 Chronic kidney disease, stage 4 (severe); E11.42 Type 2 diabetes mellitus with diabetic polyneuropathy; D63.1 Anemia in chronic kidney disease; E11.51 Type 2 diabetes mellitus with diabetic peripheral angiopathy without gangrene; I25.10 Atherosclerotic heart disease of native coronary artery without angina pectoris; M19.90 Unspecified osteoarthritis, unspecified site; J44.9 Chronic obstructive pulmonary disease, unspecified; F03.90 Unspecified dementia, unspecified severity, without behavioral disturbance, psychotic disturbance, mood disturbance, and anxiety; E78.5 Hyperlipidemia, unspecified; I25.2 Old myocardial infarction; Z79.4 Long term (current) use of insulin; Z86.73 Personal history of transient ischemic attack (TIA), and cerebral infarction without residual deficits; Z91.19 Patient's noncompliance with other medical treatment and regimen

== ENCOUNTER 2019-01-06 07:43 | Day surgery (SDC) | payer MEDICARE, MEDICAID ==
[~2019-01-06 07:43] MED LIST changes: +HYDROCODONE/ACE1 TAB PO; +LEG CRAMPS1 TAB PO
[2019-01-06 12:06] VITALS: BP 135/76
== END 2019-01-06 12:12 | disposition home or self-care (01) ==
LOC: ORM 07:43
PROVIDERS: ATTEND Surgery
PROC: 0JH63XZ Insertion of Tunneled Vascular Access Device into Chest Subcutaneous Tissue and Fascia, Percutaneous Approach (ICD-10-PCS; principal; 2019-01-06)
PROC: 02HV33Z Insertion of Infusion Device into Superior Vena Cava, Percutaneous Approach (ICD-10-PCS; 2019-01-06)
PROC: B518ZZA Fluoroscopy of Superior Vena Cava, Guidance (ICD-10-PCS; 2019-01-06)
DX: I12.0 Hypertensive chronic kidney disease with stage 5 chronic kidney disease or end stage renal disease (principal); E11.22 Type 2 diabetes mellitus with diabetic chronic kidney disease; N18.6 End stage renal disease

== ENCOUNTER 2019-01-07 11:25 | Emergency (ER) | payer MEDICARE, MEDICAID ==
[~2019-01-07] VITALS: Ht 162.6 cm; Wt 109.1 kg
[2019-01-07 12:02] VITALS: BP 178/99
== END 2019-01-07 12:04 | disposition home or self-care (01) ==
LOC: ED 11:25
DX: T82.838A Hemorrhage due to vascular prosthetic devices, implants and grafts, initial encounter (principal); E11.22 Type 2 diabetes mellitus with diabetic chronic kidney disease; I13.2 Hypertensive heart and chronic kidney disease with heart failure and with stage 5 chronic kidney disease, or end stage renal disease; I50.9 Heart failure, unspecified; N18.6 End stage renal disease; G40.909 Epilepsy, unspecified, not intractable, without status epilepticus; I25.2 Old myocardial infarction; J44.9 Chronic obstructive pulmonary disease, unspecified; F03.90 Unspecified dementia, unspecified severity, without behavioral disturbance, psychotic disturbance, mood disturbance, and anxiety; E11.42 Type 2 diabetes mellitus with diabetic polyneuropathy; Y83.8 Other surgical procedures as the cause of abnormal reaction of the patient, or of later complication, without mention of misadventure at the time of the procedure; Z86.73 Personal history of transient ischemic attack (TIA), and cerebral infarction without residual deficits

== ENCOUNTER 2019-07-08 | Emergency (ER) | payer MEDICARE, MEDICAID ==
[2019-07-08 09:50] LABS: HEMATOCRIT 43.4 % (37.0-47.0); HEMOGLOBIN 13.7 g/dl (12.0-16.0); IMMATURE GRANULOCYTES 0.6 % (0.0-5.0); MEAN CORPUSCULAR HGB 28.4 pG CALC (26.0-32.0); MEAN CORPUSCULAR HGB CONC 31.6 g/dL CAL (32.0-36.0); NEUT# 10.17 thou/uL (2.00-7.15); RED BLOOD COUNT 4.82 mill/uL (4.20-5.60); RED CELL DISTRI WIDTH 14.1 % (11.5-15.5)
[2019-07-08 10:17] LABS: CREATININE 4.2 mg/dL (0.5-1.0)
[2019-07-08] MEDS ORDERED: ZESTRIL10 M1 PO (10:21)
[2019-07-08] MEDS ORDERED: GABAPENTIN300 M2 PO (10:22)
[2019-07-08] MEDS ORDERED: OXYCODONE5 MG PO (10:22)
[2019-07-08] MEDS ORDERED: NOVOLIN N100 UNIT/M SC (10:23)
[2019-07-08] MEDS ORDERED: TRAZODONE50 MG PO (10:24)
[2019-07-08] MEDS ORDERED: [UNRECOGNIZED DRUG - OTHER] TOP (10:25)
[2019-07-08 10:26] LABS: ALBUMIN 4.5 g/dL (3.2-5.0); BILIRUBIN, TOTAL 1.1 mg/dL (0.0-1.4); POTASSIUM 3.3 mmol/l (3.5-5.1)
[2019-07-08] MEDS ORDERED: ONDANSETRON4 MG PO ×2 (12:03)
== END 2019-07-08 12:25 | disposition home or self-care (01) ==
PROVIDERS: Emergency Medicine
DX: R11.2 Nausea with vomiting, unspecified (principal); E87.6 Hypokalemia; E11.22 Type 2 diabetes mellitus with diabetic chronic kidney disease; N18.6 End stage renal disease; J44.9 Chronic obstructive pulmonary disease, unspecified; I13.2 Hypertensive heart and chronic kidney disease with heart failure and with stage 5 chronic kidney disease, or end stage renal disease; I50.9 Heart failure, unspecified; G40.909 Epilepsy, unspecified, not intractable, without status epilepticus; I25.2 Old myocardial infarction; F03.90 Unspecified dementia, unspecified severity, without behavioral disturbance, psychotic disturbance, mood disturbance, and anxiety; E11.42 Type 2 diabetes mellitus with diabetic polyneuropathy; Z79.4 Long term (current) use of insulin; Z99.2 Dependence on renal dialysis; Z86.73 Personal history of transient ischemic attack (TIA), and cerebral infarction without residual deficits; R06.02 Shortness of breath

== ENCOUNTER 2019-07-09 | Emergency (ER) | payer MEDICARE, MEDICAID ==
[~2019-07-09] MED LIST changes: +NOVOLIN N100 UNIT/M SC; +ONDANSETRON4 MG PO; +OXYCODONE5 MG PO; +[UNRECOGNIZED DRUG - OTHER] TOP
[2019-07-09 07:07] LABS: HEMOGLOBIN 12.4 g/dl (12.0-16.0); IMMATURE GRANULOCYTES 0.4 % (0.0-5.0); MEAN CELL VOLUME 90.1 fL CALC (80.0-100.0); MEAN CORPUSCULAR HGB 28.6 pG CALC (26.0-32.0); MEAN CORPUSCULAR HGB CONC 31.8 g/dL CAL (32.0-36.0); NEUT# 7.56 thou/uL (2.00-7.15); RED BLOOD COUNT 4.33 mill/uL (4.20-5.60); RED CELL DISTRI WIDTH 14.4 % (11.5-15.5)
[2019-07-09 07:33] LABS: ALBUMIN 4.2 g/dL (3.2-5.0); BILIRUBIN, TOTAL 1.2 mg/dL (0.0-1.4); CREATININE 3.8 mg/dL (0.5-1.0); POTASSIUM 3.9 mmol/l (3.5-5.1); TOTAL PROTEIN 8.5 g/dL (6.3-8.2)
--- NOTE | 2019-07-10 12:29 | NUR ---
Called [facility] [phone], spoke with patient's nurse Lor - reported COVID results. Lor communicates they just recieved negative results today on patient as well. Faxed COVID 19 results to [phone], confirmed receipt of results by Pam.
== END 2019-07-09 12:45 ==
PROVIDERS: Emergency Medicine
DX: J18.9 Pneumonia, unspecified organism (principal); K31.1 Adult hypertrophic pyloric stenosis; J44.0 Chronic obstructive pulmonary disease with (acute) lower respiratory infection; I13.2 Hypertensive heart and chronic kidney disease with heart failure and with stage 5 chronic kidney disease, or end stage renal disease; E11.22 Type 2 diabetes mellitus with diabetic chronic kidney disease; I50.9 Heart failure, unspecified; N18.6 End stage renal disease; G40.909 Epilepsy, unspecified, not intractable, without status epilepticus; I25.2 Old myocardial infarction; F03.90 Unspecified dementia, unspecified severity, without behavioral disturbance, psychotic disturbance, mood disturbance, and anxiety; E11.42 Type 2 diabetes mellitus with diabetic polyneuropathy; Z79.4 Long term (current) use of insulin; Z99.2 Dependence on renal dialysis; Z86.73 Personal history of transient ischemic attack (TIA), and cerebral infarction without residual deficits; Z20.828 Contact with and (suspected) exposure to other viral communicable diseases
CPT/HCPCS: J3370; S0164

== ENCOUNTER 2019-07-15 | Emergency (ER) | payer MEDICARE, MEDICAID ==
[2019-07-15 08:32] LABS: IMMATURE GRANULOCYTES 1.1 % (0.0-5.0); MEAN CORPUSCULAR HGB 28.5 pG CALC (26.0-32.0); NEUT# 5.38 thou/uL (2.00-7.15); RED BLOOD COUNT 3.62 mill/uL (4.20-5.60); RED CELL DISTRI WIDTH 14.5 % (11.5-15.5)
[2019-07-15 08:44] LABS: HEMATOCRIT 32.2 % (37.0-47.0); HEMOGLOBIN 10.3 g/dl (12.0-16.0)
[2019-07-15 08:49] LABS: INTERNATIONAL NORMALIZED RATIO 0.9 RATIO (0.7-1.3); PROTHROMBIN TIME 9.9 SECONDS (9.0-12.5)
[2019-07-15 08:51] LABS: ALBUMIN 3.6 g/dL (3.2-5.0); BILIRUBIN, TOTAL 0.8 mg/dL (0.0-1.4); TOTAL PROTEIN 7.3 g/dL (6.3-8.2)
[2019-07-15 08:53] LABS: POTASSIUM 4.7 mmol/l (3.5-5.1)
== END 2019-07-15 10:10 ==
DX: K29.71 Gastritis, unspecified, with bleeding (principal); I13.2 Hypertensive heart and chronic kidney disease with heart failure and with stage 5 chronic kidney disease, or end stage renal disease; E11.22 Type 2 diabetes mellitus with diabetic chronic kidney disease; N18.6 End stage renal disease; I50.9 Heart failure, unspecified; E11.42 Type 2 diabetes mellitus with diabetic polyneuropathy; G40.909 Epilepsy, unspecified, not intractable, without status epilepticus; J44.9 Chronic obstructive pulmonary disease, unspecified; F03.90 Unspecified dementia, unspecified severity, without behavioral disturbance, psychotic disturbance, mood disturbance, and anxiety; F17.200 Nicotine dependence, unspecified, uncomplicated; I25.2 Old myocardial infarction; Z79.4 Long term (current) use of insulin; Z87.11 Personal history of peptic ulcer disease; Z86.73 Personal history of transient ischemic attack (TIA), and cerebral infarction without residual deficits; Z99.2 Dependence on renal dialysis
CPT/HCPCS: S0164

== ENCOUNTER 2019-11-25 11:54 | Emergency (ER) | payer MEDICARE, MEDICAID ==
[~2019-11-25] VITALS: Ht 162.6 cm; Wt 77.3 kg
[2019-11-25 15:12] LABS: HEMOGLOBIN 11.4 g/dl (12.0-16.0); IMMATURE GRANULOCYTES 0.6 % (0.0-5.0); MEAN CORPUSCULAR HGB 27.9 pG CALC (26.0-32.0); MEAN CORPUSCULAR HGB CONC 31.7 g/dL CAL (32.0-36.0); NEUT# 4.97 thou/uL (2.00-7.15); RED BLOOD COUNT 4.09 mill/uL (4.20-5.60); RED CELL DISTRI WIDTH 15.3 % (11.5-15.5)
[2019-11-25 15:20] VITALS: BP 144/67
[2019-11-25 15:46] LABS: ALBUMIN 3.9 g/dL (3.2-5.0); TOTAL PROTEIN 7.3 g/dL (6.3-8.2)
[2019-11-25 15:49] LABS: BILIRUBIN, TOTAL 0.3 mg/dL (0.0-1.4); CREATININE 3.1 mg/dL (0.5-1.0); POTASSIUM 3.6 mmol/l (3.5-5.1)
== END 2019-11-25 15:20 | disposition short-term general hospital (02) ==
LOC: ED 11:54
PROVIDERS: Emergency Medicine
PROC: 2W3QX1Z Immobilization of Right Lower Leg using Splint (ICD-10-PCS; principal; 2019-11-25)
DX: S92.031A Displaced avulsion fracture of tuberosity of right calcaneus, initial encounter for closed fracture (principal); S80.212A Abrasion, left knee, initial encounter; E11.22 Type 2 diabetes mellitus with diabetic chronic kidney disease; I13.2 Hypertensive heart and chronic kidney disease with heart failure and with stage 5 chronic kidney disease, or end stage renal disease; I50.9 Heart failure, unspecified; N18.6 End stage renal disease; G40.909 Epilepsy, unspecified, not intractable, without status epilepticus; I25.2 Old myocardial infarction; J44.9 Chronic obstructive pulmonary disease, unspecified; F03.90 Unspecified dementia, unspecified severity, without behavioral disturbance, psychotic disturbance, mood disturbance, and anxiety; E11.42 Type 2 diabetes mellitus with diabetic polyneuropathy; D63.1 Anemia in chronic kidney disease; E11.51 Type 2 diabetes mellitus with diabetic peripheral angiopathy without gangrene; F17.200 Nicotine dependence, unspecified, uncomplicated; W01.0XXA Fall on same level from slipping, tripping and stumbling without subsequent striking against object, initial encounter; Y92.009 Unspecified place in unspecified non-institutional (private) residence as the place of occurrence of the external cause; Z99.2 Dependence on renal dialysis; Z86.73 Personal history of transient ischemic attack (TIA), and cerebral infarction without residual deficits; Z79.4 Long term (current) use of insulin

== ENCOUNTER 2020-01-01 10:56 | Emergency (ER) | payer MEDICARE, MEDICAID ==
[~2020-01-01] VITALS: Ht 162.6 cm; Wt 100.0 kg
[2020-01-01] MEDS ORDERED: CLEOCIN300 MG PO (11:18)
[2020-01-01] MEDS ORDERED: HYDROCO/APAP1 TA9 PO (11:18)
[2020-01-01 11:31] VITALS: BP 123/64
== END 2020-01-01 11:50 | disposition home or self-care (01) ==
LOC: ED 10:56
DX: K02.9 Dental caries, unspecified (principal); I13.0 Hypertensive heart and chronic kidney disease with heart failure and stage 1 through stage 4 chronic kidney disease, or unspecified chronic kidney disease; I50.9 Heart failure, unspecified; E11.22 Type 2 diabetes mellitus with diabetic chronic kidney disease; N18.9 Chronic kidney disease, unspecified; E11.51 Type 2 diabetes mellitus with diabetic peripheral angiopathy without gangrene; G40.909 Epilepsy, unspecified, not intractable, without status epilepticus; J44.9 Chronic obstructive pulmonary disease, unspecified; F03.90 Unspecified dementia, unspecified severity, without behavioral disturbance, psychotic disturbance, mood disturbance, and anxiety; E11.42 Type 2 diabetes mellitus with diabetic polyneuropathy; F17.200 Nicotine dependence, unspecified, uncomplicated; I25.2 Old myocardial infarction; Z86.73 Personal history of transient ischemic attack (TIA), and cerebral infarction without residual deficits; Z79.4 Long term (current) use of insulin

== ENCOUNTER 2020-01-18 15:36 | Emergency (ER) | payer MEDICARE, MEDICAID ==
[~2020-01-18] VITALS: Ht 162.6 cm; Wt 86.0 kg
[~2020-01-18 15:36] MED LIST changes: +CLEOCIN300 MG PO; +HYDROCO/APAP1 TA9 PO
[2020-01-18 17:16] LABS: HEMATOCRIT 32.1 % (37.0-47.0); IMMATURE GRANULOCYTES 0.3 % (0.0-5.0); MEAN CORPUSCULAR HGB 29.7 pG CALC (26.0-32.0); MEAN CORPUSCULAR HGB CONC 31.2 g/dL CAL (32.0-36.0); NEUT# 6.48 thou/uL (2.00-7.15); RED BLOOD COUNT 3.37 mill/uL (4.20-5.60); RED CELL DISTRI WIDTH 14.2 % (11.5-15.5)
[2020-01-18 17:17] LABS: MEAN CELL VOLUME 95.3 fL CALC (80.0-100.0)
[2020-01-18 17:24] LABS: ALBUMIN 3.9 g/dL (3.2-5.0)
[2020-01-18 17:29] LABS: BILIRUBIN, TOTAL 1.2 mg/dL (0.0-1.4)
[2020-01-18] MEDS ORDERED: NAPROXEN375 MG PO (18:31)
[2020-01-18 19:07] VITALS: BP 136/87
== END 2020-01-18 19:09 | disposition home or self-care (01) ==
LOC: ED 15:36
DX: E11.621 Type 2 diabetes mellitus with foot ulcer (principal); L97.419 Non-pressure chronic ulcer of right heel and midfoot with unspecified severity; E87.6 Hypokalemia; S92.901D Unspecified fracture of right foot, subsequent encounter for fracture with routine healing; X58.XXXD Exposure to other specified factors, subsequent encounter; G40.909 Epilepsy, unspecified, not intractable, without status epilepticus; G45.9 Transient cerebral ischemic attack, unspecified; I25.2 Old myocardial infarction; E11.22 Type 2 diabetes mellitus with diabetic chronic kidney disease; I13.0 Hypertensive heart and chronic kidney disease with heart failure and stage 1 through stage 4 chronic kidney disease, or unspecified chronic kidney disease; N18.9 Chronic kidney disease, unspecified; I50.9 Heart failure, unspecified; E11.42 Type 2 diabetes mellitus with diabetic polyneuropathy; J44.9 Chronic obstructive pulmonary disease, unspecified; M10.9 Gout, unspecified; F03.90 Unspecified dementia, unspecified severity, without behavioral disturbance, psychotic disturbance, mood disturbance, and anxiety; F41.9 Anxiety disorder, unspecified; I25.10 Atherosclerotic heart disease of native coronary artery without angina pectoris; E78.5 Hyperlipidemia, unspecified; E11.51 Type 2 diabetes mellitus with diabetic peripheral angiopathy without gangrene

== ENCOUNTER 2020-01-23 14:46 | Emergency (ER) | payer MEDICARE, MEDICAID ==
[~2020-01-23] VITALS: Ht 162.6 cm; Wt 68.0 kg
[~2020-01-23 14:46] MED LIST changes: +NAPROXEN375 MG PO
[2020-01-23 15:28] LABS: IMMATURE GRANULOCYTES 0.5 % (0.0-5.0); MEAN CELL VOLUME 93.2 fL CALC (80.0-100.0); MEAN CORPUSCULAR HGB 29.7 pG CALC (26.0-32.0); MEAN CORPUSCULAR HGB CONC 31.9 g/dL CAL (32.0-36.0); NEUT# 6.9 thou/uL (2.00-7.15); RED BLOOD COUNT 2.22 mill/uL (4.20-5.60); RED CELL DISTRI WIDTH 14.2 % (11.5-15.5)
[2020-01-23 15:32] LABS: HEMATOCRIT 20.7 % (37.0-47.0); HEMOGLOBIN 6.6 g/dl (12.0-16.0)
[2020-01-23 15:48] LABS: POTASSIUM 2.8 mmol/l (3.5-5.1)
[2020-01-23 15:54] LABS: ALBUMIN 3.1 g/dL (3.2-5.0); BILIRUBIN, TOTAL 0.7 mg/dL (0.0-1.4); CREATININE 5.6 mg/dL (0.5-1.0); TOTAL PROTEIN 6.3 g/dL (6.3-8.2)
[2020-01-23 18:04] VITALS: BP 159/70
[2020-01-23 18:22] VITALS: BP 131/63
[2020-01-23 20:50] VITALS: BP 142/72
== END 2020-01-23 20:50 | disposition short-term general hospital (02) ==
LOC: ED 14:46
PROVIDERS: Family Medicine
PROC: 30233N1 Transfusion of Nonautologous Red Blood Cells into Peripheral Vein, Percutaneous Approach (ICD-10-PCS; principal; 2020-01-23)
PROC: 05HM33Z Insertion of Infusion Device into Right Internal Jugular Vein, Percutaneous Approach (ICD-10-PCS; 2020-01-23)
DX: E11.52 Type 2 diabetes mellitus with diabetic peripheral angiopathy with gangrene (principal); I96 Gangrene, not elsewhere classified; L89.619 Pressure ulcer of right heel, unspecified stage; I13.0 Hypertensive heart and chronic kidney disease with heart failure and stage 1 through stage 4 chronic kidney disease, or unspecified chronic kidney disease; E11.22 Type 2 diabetes mellitus with diabetic chronic kidney disease; N18.9 Chronic kidney disease, unspecified; D63.1 Anemia in chronic kidney disease; J44.9 Chronic obstructive pulmonary disease, unspecified; I50.9 Heart failure, unspecified; F03.90 Unspecified dementia, unspecified severity, without behavioral disturbance, psychotic disturbance, mood disturbance, and anxiety; I25.10 Atherosclerotic heart disease of native coronary artery without angina pectoris; E11.42 Type 2 diabetes mellitus with diabetic polyneuropathy; K21.9 Gastro-esophageal reflux disease without esophagitis; E78.5 Hyperlipidemia, unspecified; G40.909 Epilepsy, unspecified, not intractable, without status epilepticus; I25.2 Old myocardial infarction; Z86.73 Personal history of transient ischemic attack (TIA), and cerebral infarction without residual deficits
CPT/HCPCS: P9016

== ENCOUNTER 2020-03-31 15:07 | Emergency (ER) | payer MEDICARE, MEDICAID ==
[~2020-03-31] VITALS: Ht 162.6 cm; Wt 70.0 kg
[2020-03-31 17:00] LABS: IMMATURE GRANULOCYTES 0.4 % (0.0-5.0); MEAN CORPUSCULAR HGB 27.7 pG CALC (26.0-32.0); MEAN CORPUSCULAR HGB CONC 31.9 g/dL CAL (32.0-36.0); NEUT# 6.99 thou/uL (2.00-7.15); RED BLOOD COUNT 3.47 mill/uL (4.20-5.60); RED CELL DISTRI WIDTH 15.3 % (11.5-15.5)
[2020-03-31 17:06] LABS: HEMATOCRIT 30.1 % (37.0-47.0); HEMOGLOBIN 9.6 g/dl (12.0-16.0); MEAN CELL VOLUME 86.7 fL CALC (80.0-100.0)
[2020-03-31 17:18] LABS: ALBUMIN 3.1 g/dL (3.2-5.0); BILIRUBIN, TOTAL 0.9 mg/dL (0.0-1.4); BUN 38 mg/dL (8-23); CARBON DIOXIDE 30 mmol/l (22-30); CHLORIDE 95 mmol/l (95-108); SGOT/AST 23 u/l (9-36); SODIUM 134 mmol/l (137-146)
[2020-03-31 17:21] LABS: ALKALINE PHOSPHATASE 134 u/l (38-126); ANION GAP 13 (6-22 (CALC)); BUN/CREATININE RATIO 8 (12-20 (CALC)); CREATININE 4.5 mg/dL (0.5-1.0); GFR 10 ML/MIN (>=60 (CALC)); GFR FOR AFR.AMER. 12 ML/MIN (>=60 (CALC)); POTASSIUM 4.1 mmol/l (3.5-5.1)
[2020-03-31 17:30] LABS: MYOGLOBIN 214 ng/mL (0 - 62)
[2020-03-31 18:29] VITALS: BP 169/82
== END 2020-03-31 20:40 | disposition short-term general hospital (02) ==
LOC: ED 15:07
PROVIDERS: Emergency Medicine
DX: A41.9 Sepsis, unspecified organism (principal); J18.9 Pneumonia, unspecified organism; E11.52 Type 2 diabetes mellitus with diabetic peripheral angiopathy with gangrene; I96 Gangrene, not elsewhere classified; E11.621 Type 2 diabetes mellitus with foot ulcer; L97.418 Non-pressure chronic ulcer of right heel and midfoot with other specified severity; E11.22 Type 2 diabetes mellitus with diabetic chronic kidney disease; J44.0 Chronic obstructive pulmonary disease with (acute) lower respiratory infection; I13.2 Hypertensive heart and chronic kidney disease with heart failure and with stage 5 chronic kidney disease, or end stage renal disease; I50.9 Heart failure, unspecified; N18.6 End stage renal disease; G40.909 Epilepsy, unspecified, not intractable, without status epilepticus; F03.90 Unspecified dementia, unspecified severity, without behavioral disturbance, psychotic disturbance, mood disturbance, and anxiety; F41.9 Anxiety disorder, unspecified; E11.42 Type 2 diabetes mellitus with diabetic polyneuropathy; D63.1 Anemia in chronic kidney disease; K21.9 Gastro-esophageal reflux disease without esophagitis; E78.5 Hyperlipidemia, unspecified; I95.9 Hypotension, unspecified; L08.89 Other specified local infections of the skin and subcutaneous tissue; I25.2 Old myocardial infarction; Z87.11 Personal history of peptic ulcer disease; Z86.73 Personal history of transient ischemic attack (TIA), and cerebral infarction without residual deficits; Z99.2 Dependence on renal dialysis; Z77.22 Contact with and (suspected) exposure to environmental tobacco smoke (acute) (chronic); Z20.828 Contact with and (suspected) exposure to other viral communicable diseases